=== PATIENT | male | born 1970 | race Caucasian/White ===

== ENCOUNTER 2022-05-30 04:24 | Inpatient (IN) | payer MEDICAID, SELFPAY ==
[2022-05-30] VITALS (7 sets, daily range): BP systolic 106–163; BP diastolic 71–102; PULSE 56–82; RESP 16–18; TEMP 36.5–37.6; O2SAT 94–98; BMI 28.8; BMI 27.9
--- NOTE | 2022-05-30 04:40 | EDS_ITS ---
HPI HPI - Psych History of Present Illness Chief Complaint: Mental Health Informant: patient and police/second hand paper machine Narrative Narrative: Patient lives in a detention, and left/eloped a couple days ago and it was actually reported missing. States [place] the [place] for the [place] 2 nights and no longer wants to be homeless. He states he has been drinking a little alcohol recently but not much and no other substances. He called police from a gas station tonight saying that he needed help with his mental health and needed brought to the hospital. He has been hearing voices that have been telling him to punch, slap, and scratch himself in the head/face. He is off his medications, and states he cannot think clearly right now. He is having some occasional suicidal thoughts but he denies suicidal ideation, he wants help which is why he called the police. Police escorted him here, saying that he was cooperative for them. Patient denies any recent illness or injury. [facility] Medical History (Updated 05/30/22 @ 07:[address] Terry Cornelius MD) Depression Diabetes mellitus HTN (hypertension) PTSD (post-traumatic stress disorder) Home Medications NK 05/30/22 [History Last Taken Unknown] Allergy/AdvReac Type Severity Reaction Status Date / Time No Known Allergies Allergy Verified 05/30/22 04:34 Social History Smoking Status: Never smoker ROS ROS ED Constitutional Constitutional ED: Denies chills or fever(s) Eyes Eyes: Denies change in vision or diplopia ENT ENT ED: Denies rhinorrhea or sore throat Cardiovascular Cardiovascular: Denies chest pain or palpitations Respiratory/Chest Respiratory/Chest: Denies cough or dyspnea Gastrointestinal Gastrointestinal: Denies abdominal pain, diarrhea, nausea or vomiting Genitourinary Genitourinary ED: Denies dysuria or hematuria Musculoskeletal Musculoskeletal: Denies back pain or neck pain Integumentary Denies abscess or rash Neurologic Neurologic: Denies headache(s), paresthesias or weakness Psychiatric Psychiatric: Reports auditory hallucinations, depression and suicidal thoughts; Denies homicidal ideation EXAM Physical Exam Const Vital Signs: 05/30/22 04:25 05/30/22 04:34 05/30/22 06:00 Temperature 97.7 F L Temperature Source Oral Pulse Rate 79 82 Respiratory Rate 16 16 Blood Pressure 163/102 H 153/99 H 147/95 H Blood Pressure Mean 122 117 112 Pulse Ox 94 95 Oxygen Delivery Method Room Air Room Air Positive well nourished, well developed and unkempt General Appearance ED: unkempt, well developed and NAD HEENT Reports moist mucous membranes normocephalic and atraumatic Eyes PERRL and EOMs intact bilaterally General Eye ED: Negative for scleral icterus Neck no lymphadenopathy and supple Resp normal respiratory effort and clear to auscultation bilaterally Cardio no murmurs Rate: regular rate; Negative for tachycardic Rhythm: regular rhythm GI non-tender and non-distended Auscultation: normoactive bowel sounds Palpation: soft Back/Spine no CVA tenderness and normal ROM Extremity normal to inspection General Extremety ED: Negative for edema General Extremity: Negative for edema Neuro CN's II-XII intact bilaterally, no sensory deficits noted and gait normal Neuro Narrative: Somewhat disoriented at times; difficult to tell because patient does not answer some questions and just says he is having trouble thinking clearly right now. Sensorium / Orientation: alert, oriented to person and oriented to place Motor Exam: strength 5/5 throughout Psych mental status grossly normal, cooperative, speech normal, activity/motor behavior normal, denies homicidal ideation and denies suicidal ideation Appearance: unkempt Mood & Affect: depressed Thought Content: suicidality Skin Lesions: no lesions Rashes: no rashes MDM MDM MDM Narrative Medical decision making narrative: Other than a history of depression and PTSD, his diagnoses are unknown and his medications are unknown. Labs show hyperglycemia at 328, I questioned him about the possibility of diabetes and he states yes he has a history of it but states that he was taken off of all medications at home and was given insulin whenever he was admitted to psychiatric hospitals in the past. His bilirubin is elevated at 3.2, I do not have old records on this. His other liver enzymes are just slightly elevated. He states he has been drinking recently, but does not have cirrhosis history that he knows of. He does not appear jaundiced clinically. His abdomen is very benign so this is unlikely to be anything acute and can be worked up further as an outpatient. He was given insulin to get his blood sugar down, his anion gap is within normal limits, his alcohol level is a little elevated at 118, and he has THC in his urine, no other drugs. I added an ammonia level, it actually is quite elevated suggesting he has acute hepatic encephalopathy given his disorientation. I discussed with hospitalist, we will admit him and I will go ahead and order an ultrasound to start the work-up process. Lab Data Attestation: I reviewed the patient's lab results. Labs: Laboratory Results - last 24 hr 05/30/22 05/30/22 05/30/22 05:00 05:00 05:00 WBC 3.7 L RBC 3.96 L Hgb 13.0 Hct 37.8 L MCV 95.5 H MCH 32.8 H MCHC 34.4 RDW Std Deviation 50.1 H RDW Coeff of Harrison 14.2 Plt Count 66 L MPV 11.8 Immature Gran % (Auto) 0.300 Neut % (Auto) 58.6 Lymph % (Auto) 23.8 Lipscomb % (Auto) 13.5 H Eos % (Auto) 3.5 Baso % (Auto) 0.3 Absolute Neuts (auto) 2.2 Absolute Lymphs (auto) 0.88 Nucleated RBC % 0 Differential Comment SCANNED Platelet Estimate MOD DEC PT INR Sodium 136 Potassium 3.9 Chloride 103 Carbon Dioxide 27.0 Anion Gap 6 BUN 4 L Creatinine 0.65 L Estim Creat Clear Calc 112.58 Est GFR (MDRD) Af Amer 167 Est GFR (MDRD) Non-Af 138 BUN/Creatinine Ratio 6.2 L Glucose 328 H Calcium 8.1 L Total Bilirubin 3.20 H AST 128 H ALT 91 H Alkaline Phosphatase 144 H Ammonia Total Protein 7.0 Albumin 2.6 L Globulin 4.4 H Albumin/Globulin Ratio 0.6 L Urine Opiates Screen Urine Methadone Screen Ur Barbiturates Screen Ur Phencyclidine Scrn Ur Amphetamines Screen MDMA (Ecstasy) Screen U Benzodiazepines Scrn Urine Cocaine Screen U Cannabinoids Screen Ur Drug Screen Comment Ethyl Alcohol 118.0 05/30/22 05/30/22 05/30/22 05:00 06:00 06:00 WBC RBC Hgb Hct MCV MCH MCHC RDW Std Deviation RDW Coeff of Harrison Plt Count MPV Immature Gran % (Auto) Neut % (Auto) Lymph % (Auto) Lipscomb % (Auto) Eos % (Auto) Baso % (Auto) Absolute Neuts (auto) Absolute Lymphs (auto) Nucleated RBC % Differential Comment Platelet Estimate PT 16.0 H INR 1.3 Sodium Potassium Chloride Carbon Dioxide Anion Gap BUN Creatinine Estim Creat Clear Calc Est GFR (MDRD) Af Amer Est GFR (MDRD) Non-Af BUN/Creatinine Ratio Glucose Calcium Total Bilirubin AST ALT Alkaline Phosphatase Ammonia 136.0 H Total Protein Albumin Globulin Albumin/Globulin Ratio Urine Opiates Screen NEGATIVE Urine Methadone Screen NEGATIVE Ur Barbiturates Screen NEGATIVE Ur Phencyclidine Scrn NEGATIVE Ur Amphetamines Screen NEGATIVE MDMA (Ecstasy) Screen NEGATIVE U Benzodiazepines Scrn NEGATIVE Urine Cocaine Screen NEGATIVE U Cannabinoids Screen POSITIVE H Ur Drug Screen Comment Ethyl Alcohol Discharge Plan Dx/Rx/DC Orders Clinical Impression: Acute hepatic encephalopathy, Auditory hallucinations, Hyperglycemia due to diabetes mellitus Disposition Disposition: Acute Care Hospital [facility]
--- NOTE | 2022-05-30 05:02 | ED.RN ---
Per Dr Cornelius patient is low suicide risk and does not need a sitter
[2022-05-30 05:17] LABS: Absolute Lymphocyte Count 0.88 X10^3/uL (0.83-4.51); Absolute Neutrophil Count 2.2 X10^3/uL (2.0-7.7); Basophil# 0.01 X10^3/uL; Basophil% 0.3 % (0-1); Eosinophil# 0.13 X10^3/uL; Eosinophils% 3.5 % (0-5); Hematocrit 37.8 % (40-54); Lymphocyte # 0.88 X10^3/ul (0.83-4.51); Lymphocyte % 23.8 % (19-41); Mean Corp Hgb Conc 34.4 g/dL (32-36); Mean Corpuscular Hgb 32.8 pg (27.0-32.0); Mean Corpuscular Volume 95.5 fL (80-94); Mean Platelet Vol. 11.8 fl (6.2-12.0); Monocyte% 13.5 % (0-10); NRBC Flagged by Analyzer 0 % (0-5); Neutrophil # 2.17 X10^3/uL (2.7-7.7); Neutrophil % 58.6 % (47-70); POSITIVE COUNT YES; Platelet Count 66 K/mm3 (150-450); RBC Distribution Width CV 14.2 % (11.6-14.6); RBC Distribution Width SD 50.1 fl (35.1-43.9); Red Blood Count 3.96 M/mm3 (4.6-6.2); White Blood Count 3.7 K/mm3 (4.4-11.0)
[2022-05-30 05:27] LABS: Differential Indicated SCAN CRITERIA MET
[2022-05-30 05:29] LABS: Amphetamine Urine VISTA NEGATIVE (<1000 ng/mL); Barbiturate Urine VISTA NEGATIVE (< 200 ng/mL); Benzodiazepine Urine VISTA NEGATIVE (< 200 ng/mL); Cocaine Urine VISTA NEGATIVE (< 300 ng/mL); Ecstacy Urine VISTA NEGATIVE (< 500 ng/mL); Methadone Urine VISTA NEGATIVE (< 300 ng/mL); PCP Urine VISTA NEGATIVE (< 25 ng/mL); THC Urine VISTA POSITIVE (< 50 ng/mL); Vista UDS pH Range 7
[2022-05-30 05:35] LABS: ALB/GLOB Ratio 0.6 RATIO (0.9-2.4); AST(SGOT) 128 U/L (15-37); Alanine Aminotransfer ALT/SGPT 91 U/L (16-61); Albumin, Serum 2.6 g/dL (3.2-5.0); Alkaline Phosphatase 144 U/L (45-117); Anion Gap 6 (5-15); BUN 4 mg/dL (7-18); BUN/Creat Ratio 6.2 RATIO (10-20); Calcium,Total 8.1 mg/dL (8.5-10.1); Chloride 103 mmol/L (98-107); Creatinine, Serum 0.65 mg/dL (0.70-1.30); EST Glomerular Filtration Rate 138 mL/min (>60); Est Glom Filt Rate - Afr Amer 167 mL/min (>60); Estimated Creatinine Clearance 112.58 ml/min; Globulin 4.4 g/dL (2.2-4.2); Glucose 328 mg/dL (74-106); Potassium 3.9 mmol/L (3.5-5.1); Sodium Level 136 mmol/L (136-145)
[2022-05-30 05:56] LABS: Differential Comment SCANNED; Platelet Estimate MOD DEC (ADEQ)
[2022-05-30] MEDS: Insulin Lispro 100 UNIT/ML INSULN.PEN 12 UNIT SC (05:57)
[2022-05-30 06:21] LABS: International Normalized Ratio 1.3
--- NOTE | 2022-05-30 07:18 | NURSING ---
HOSPITALIST FOR DR MENCHACA
--- NOTE | 2022-05-30 07:21 | US_ITS ---
STUDY: ABDOMINAL ULTRASOUND - RIGHT UPPER QUADRANT REASON FOR VISIT: Male, 51 years old elevated liver enzymes, hepatic encephalopathy TECHNIQUE: Ultrasound evaluation of the right upper quadrant was performed with real-time and static butler-scale imaging. TECHNICAL QUALITY: Adequate. COMPARISON: None. FINDINGS: Liver: The liver measures 12.7 cm. There is a heterogeneous echogenicity of the liver. The bile ducts are within normal limits. There is hepatic color flow. The direction of portal flow is hepatopetal. There is no demonstrated mass lesion. Gallbladder: Normal distended gallbladder. The gallbladder wall measures 3 mm. There is a negative sonographic Henderson''s sign. There is pericholecystic fluid. There are no gallstones. Common Bile Duct (C.B.D.): The common bile duct measures 4 mm. Pancreas: Normal size of the head, body and tail of the pancreas. There is normal echogenicity of the pancreas. There is no demonstrated pancreatic mass or cyst. Right Kidney: Normal size of the right kidney. The right kidney measures 12.1 cm. Normal renal cortex. The right cortex measures 1.4 cm. There is no demonstrated renal mass or cyst. There is no right hydronephrosis. US/Liver IMPRESSION: 1. Heterogeneous hepatic echotexture which may be related to cirrhosis or hepatitis. No hepatic mass. 2. Gallbladder wall thickening and small amount of pericholecystic fluid which may be related to ascites or cholecystitis. Clinical correlation and CT may be useful. Electronically Signed: Moi Salguero MD at 16:04 EDT ,
--- NOTE | 2022-05-30 07:26 | HP.PCM.HOS_ITS ---
HPI - General General Date of Admission: 05/30/22 Date of Service: 05/30/22 Chief Complaint: Confusion, suicidal ideation HPI Narrative JOSE TALLEY, is a 51 M who presents with the above. Patient has history of schizoaffective disorder, chronic alcohol use, substance abuse who comes in with confusion. Patient lives in a retirement and reportedly had eloped about a week from the retirement. He has been living out in the park. Patient stated that he has been feeling very depressed and had wanted to kill himself several times. He however did not have a rope to do it. He called the police from a gas station saying he needed help with his mental health and needed to be brought to the hospital. 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 He still feels low, and he has a plan to either jump in front of a semitruck or hang himself. He last had these depressive thoughts this morning. Patient also stated that he has DM but not on medication. Vitals in the ED showed temperature 97.7F, blood pressure 163/102, heart rate 79, respiratory rate 16, oxygen sat is 94% on room air. His RBC count was 3.7, Hb 13.2, platelet count 66. INR is 1.3. Sodium 136, potassium 3.9, chloride 103, bicarbonate 27, BUN 4, creatinine 0.65, glucose was 328, HbA1c 7.8, calcium 8.1, total bilirubin 0.2, WBCs 1.52, AST 128, ALT 91, ALP 144, ammonia 136.0, albumin 2.6. UA is positive for cannabinoids. Hepatitis profile is pending. [facility] Medical History Bipolar disorder Depression Diabetes mellitus HTN (hypertension) PTSD (post-traumatic stress disorder) Schizophrenia Home Medications NK 05/30/22 [History Last Taken Unknown] Allergy/AdvReac Type Severity Reaction Status Date / Time No Known Allergies Allergy Verified 05/30/22 04:34 Family History (Updated 05/30/22 @ 12:[address] Cinthia Shelby MD) Father Heart disease Mother No problems noted. Surgical History (Updated 05/30/22 @ 12:[address] Cinthia Shelby MD) History of tonsillectomy Social History Smoking Status: Never smoker ROS ROS Narrative Constitutional: Denies: Anorexia, Chills, Fever, Night Sweats, Weight Change Eyes: Denies: Blurred vision, Cataracts, Conjunctivae Inflammation, Pain, Redness, Vision Change HEENT: Denies: Difficulty Hearing, Difficulty Swallowing, Head Aches, Hearing Changes, Sinus Congestion, Sinus Drainage Cardiovascular: Denies: Chest Pain, Orthopnea, Palpitations Respiratory: Denies: Cough, Shortness of breath at rest, Sputum production Gastrointestinal: Denies: Abdominal Pain, Nausea, Vomiting Genitourinary: Denies: Dysuria Musculoskeletal: Denies: Joint Pain, Joint stiffness, Joint swelling, Joint Tenderness Skin: Denies: Rash, Wounds Neurological: Denies: Numbness, Tingling, Focal weakness Vital Signs Vital Signs Vital Signs: 05/30/22 04:25 05/30/22 04:34 05/30/22 06:00 Temperature 97.7 F L Temperature Source Oral Pulse Rate 79 82 Respiratory Rate 16 16 Blood Pressure 163/102 H 153/99 H 147/95 H Blood Pressure Mean 122 117 112 Pulse Ox 94 95 Oxygen Delivery Method Room Air Room Air Weight Weight: 76.2 kg Body Mass Index (BMI) 28.8 Physical Exam Narrative Physical exam: General: Alert, Oriented x3, Cooperative, No apparent distress HEENT: Atraumatic Oral: Moist Mucosa Neck: Supple Lungs: Clear to auscultation Cardiovascular: HS I+II, regular, no murmurs Abdomen: Bowel Sounds Present, Soft, Non Tender Extremities: No edema Skin: No rashes, No breakdown Neurological: Grossly intact Psych/Mental Status: Appropriate Results Lab / Micro Data Result Diagrams: 05/30/22 05:00 05/30/22 05:00 Labs: Laboratory Results - last 24 hr 05/30/22 05:00: WBC 3.7 L, RBC 3.96 L, Hgb 13.0, Hct 37.8 L, MCV 95.5 H, MCH 32.8 H, MCHC 34.4, RDW Std Deviation 50.1 H, RDW Coeff of Harrison 14.2, Plt Count 66 L, MPV 11.8, Immature Gran % (Auto) 0.300, Neut % (Auto) 58.6, Lymph % (Auto) 23.8, Dane % (Auto) 13.5 H, Eos % (Auto) 3.5, Baso % (Auto) 0.3, Absolute Neuts (auto) 2.2, Absolute Lymphs (auto) 0.88, Nucleated RBC % 0, Differential Comment SCANNED, Platelet Estimate MOD 05/30/22 05:00: Sodium 136, Potassium 3.9, Chloride 103, Carbon Dioxide 27.0, Anion Gap 6, BUN 4 L, Creatinine 0.65 L, Estim Creat Clear Calc 112.58, Est GFR (MDRD) Af Amer 167, Est GFR (MDRD) Non-Af 138, BUN/Creatinine Ratio 6.2 L, Glucose 328 H, Calcium 8.1 L, Total Bilirubin 3.20 H, AST 128 H, ALT 91 H, Alkaline Phosphatase 144 H, Total Protein 7.0, Albumin 2.6 L, Globulin 4.4 H, Albumin/Globulin Ratio 0.6 L 05/30/22 05:00: Ethyl Alcohol 118.0 05/30/22 05:00: Urine Opiates Screen NEGATIVE, Urine Methadone Screen NEGATIVE, Ur Barbiturates Screen NEGATIVE, Ur Phencyclidine Scrn NEGATIVE, Ur Amphetamines Screen NEGATIVE, MDMA (Ecstasy) Screen NEGATIVE, U Benzodiazepines Scrn NEGATIVE, Urine Cocaine Screen NEGATIVE, U Cannabinoids Screen POSITIVE H, Ur Drug Screen Comment 05/30/22 06:00: Ammonia 136.0 H 05/30/22 06:00: PT 16.0 H, INR 1.3 Micro: Microbiology 05/30/22 05:10 Nasal Secretion SARS-CoV-2 Antigen (Rapid) - Final Assessment & Plan Assessment/Plan (1) Acute hepatic encephalopathy: PLAN: Plan 1. Acute hepatic encephalopathy, likely secondary to alcoholic liver cirrhosis Patient with history of alcohol abuse. Ammonia level is 136 LFTs elevated, work-up including liver ultrasound, hepatitis profile, Tylenol levels, salicylate levels Continue on lactulose, follow-up on rest of work-up 2. Suicidal ideation/intent, history of schizoaffective disorder We will continue to monitor 3. Type 2 DM, HbA1c 7.8, will control for now on insulin sliding scale 4. Chronic alcohol abuse, will monitor for withdrawal 5. Thrombocytopenia likely related to liver cirrhosis, platelet count 66, will monitor 6. DVT PPx-low risk, early ambulation recommended Charges/Coding Visit Charges Inpatient E&M: 82450 Init Hosp L3
--- NOTE | 2022-05-30 07:28 | NURSING ---
MED SURG [facility]UAMA HEPATIC ENCEPHALOPATHY
[2022-05-30] MEDS: 0.9% Normal Saline 1,000 ML 100 ML IV ×2 (08:47→20:02)
[2022-05-30 08:51] LABS: Bilirubin, Direct 1.52 mg/dL (0.00-0.30)
--- NOTE | 2022-05-30 09:02 | ED.RN ---
THIS RN WAS GIVEN LEGAL GUARDIAN AND SCREEN TENDER HELPER INFO FROM JAYLYN AT [facility]. THIS RN SPOKE WITH LEGAL GUARDIAN RICKI VILLAREAL AT [phone] WHO VERBALIZED UNDERSTANDING OF PATIENTS ADMISSION, GIVING CONSENT. HE ALSO STATED THAT HE WAS ON VACATION IN THE [facility], HE IS AVAILABLE BUT CELL PRODUCTION SPECIALIST IS LIMITED. THIS RN THEN CALLED HIS SCREEN TENDER HELPER MARINO AT [phone] GAVE HER AN UPDATE ON PATIENT AND HIS CONDITION/ ADMISSION. I THEN SPOKE WITH ELIZABETH BARGER ON MS. I GAVE HER INFORMATION REGARDING RAMIRO AND MARINO FOR FURTHER FOLLOWUP.
[2022-05-30] MEDS: Lactulose 20 GM/30 ML UDC PO ×2 (09:15→21:59)
--- NOTE | 2022-05-30 09:15 | CASEMGMT ---
Social Work SW spoke with ED RN and received information on pt's Legal Guardian and Candy Counter Clerk. Demographic sheet updated. SW did call Candy Counter Clerk and leave message. CHELY is Isabel Banerjee from [facility]. Per physician, pt will need to be seen by crisis for psychiatric placement but pt is not medically cleared at this time. DEISI Acosta
[2022-05-30 09:16] LABS: Acetaminophen (Tylenol) Level < 2.0 ug/mL (10.0-30.0)
--- NOTE | 2022-05-30 09:34 | NURSING ---
pt stated he had thoughts of hurting self until he came to hospital. pt stated he always has a plan to kill self. notified dr jean and professor of social work.
[2022-05-30 12:42] LABS: Hemoglobin A1c 7.8 % (3.8-5.6)
--- NOTE | 2022-05-30 14:44 | NURSING ---
pt to u/s with sitter
[2022-05-30] MEDS: Insulin Lispro 100 UNIT/ML INSULN.PEN SC ×2 (15:54→22:00)
[2022-05-30 16:25] LABS: Bedside Glucose 171 mg/dL (74-106)
[2022-05-30 22:31] LABS: Bedside Glucose 215 mg/dL (74-106)
[2022-05-31 01:55] VITALS: BP 123/76; PULSE 54; RESP 18; TEMP 36.7; O2SAT 94
[2022-05-31 05:30] LABS: Absolute Lymphocyte Count 0.92 X10^3/uL (0.83-4.51); Absolute Neutrophil Count 1.8 X10^3/uL (2.0-7.7); Eosinophil# 0.15 X10^3/uL; Eosinophils% 4.7 % (0-5); Hematocrit 35.9 % (40-54); Hemoglobin 12.3 g/dL (13.0-16.5); Lymphocyte # 0.92 X10^3/ul (0.83-4.51); Lymphocyte % 28.8 % (19-41); Mean Corp Hgb Conc 34.3 g/dL (32-36); Mean Corpuscular Hgb 32.5 pg (27.0-32.0); Mean Platelet Vol. 11.8 fl (6.2-12.0); Monocyte# 0.36 X10^3/uL; Monocyte% 11.3 % (0-10); NRBC Flagged by Analyzer 0 % (0-5); Neutrophil # 1.76 X10^3/uL (2.7-7.7); Neutrophil % 54.9 % (47-70); POSITIVE COUNT YES; Platelet Count 52 K/mm3 (150-450); RBC Distribution Width SD 48.9 fl (35.1-43.9); Red Blood Count 3.78 M/mm3 (4.6-6.2); White Blood Count 3.2 K/mm3 (4.4-11.0)
[2022-05-31] MEDS: 0.9% Normal Saline 1,000 ML 100 ML IV (05:38)
[2022-05-31 06:00] LABS: ALB/GLOB Ratio 0.6 RATIO (0.9-2.4); AST(SGOT) 102 U/L (15-37); Alanine Aminotransfer ALT/SGPT 78 U/L (16-61); Albumin, Serum 2.2 g/dL (3.2-5.0); Alkaline Phosphatase 139 U/L (45-117); Anion Gap 4 (5-15); BUN 5 mg/dL (7-18); Calcium,Total 7.9 mg/dL (8.5-10.1); Chloride 108 mmol/L (98-107); Cholesterol 84 mg/dL (200); Creatinine, Serum 0.56 mg/dL (0.70-1.30); EST Glomerular Filtration Rate 164 mL/min (>60); Est Glom Filt Rate - Afr Amer 199 mL/min (>60); Estimated Creatinine Clearance 130.67 ml/min; Globulin 3.9 g/dL (2.2-4.2); Glucose 193 mg/dL (74-106); High Density Lipoprotein 38 mg/dL; Magnesium 1.5 mg/dL (1.6-2.6); Potassium 3.5 mmol/L (3.5-5.1); Protein, Total 6.1 g/dL (6.4-8.2); Sodium Level 138 mmol/L (136-145); Triglycerides 91 mg/dL; Very Low Density Lipoprotein 18 mg/dL (5-40)
[2022-05-31] MEDS: Insulin Lispro 100 UNIT/ML INSULN.PEN SC ×4 (06:42→21:42)
[2022-05-31 07:05] LABS: Bedside Glucose 239 mg/dL (74-106)
[2022-05-31 07:57] VITALS: BP 124/84; PULSE 62; RESP 16; TEMP 37.1; O2SAT 97
[2022-05-31] MEDS: Lactulose 20 GM/30 ML UDC PO ×2 (09:07→21:41)
--- NOTE | 2022-05-31 09:54 | PN.HOSP_ITS ---
Subjective Subjective Follow-up on acute hepatic encephalopathy/acute psychiatric crisis: Patient was seen and examined. He feels improved, he is moving his bowels. He admits to still hearing voices. He stated that this morning he felt strongly that he should kill himself. He does not have a clear plan yet. He has been hearing voices and has been hearing from God. Objective Data Objective Data Vital Signs: Vital Signs Temp Pulse Resp BP Pulse Ox O2 Del Method 98.7 F 62 16 124/84 H 97 Room Air 05/31/22 07:57 05/31/22 07:57 05/31/22 07:57 05/31/22 07:57 05/31/22 07:57 05/31/22 07:57 Oxygen Delivery Method Room Air Weight: 74.134 kg Body Mass Index (BMI) 27.9 Intake & Output: Intake and Output for Last 24 Hours 05/29/22 05/30/22 05/31/22 23:59 23:59 23:59 Intake Total 1525 / 2325 2360 / 2360 Balance 1525 / 2325 2360 / 2360 Lab / Micro Data Result Diagrams: 05/31/22 05:20 05/31/22 05:20 Labs: Laboratory Results - last 24 hr 05/30/22 05:00: Hemoglobin A1c 7.8 H 05/30/22 15:53: POC Glucose 171 H 05/30/22 21:57: POC Glucose 215 H 05/31/22 05:20: WBC 3.2 L, RBC 3.78 L, Hgb 12.3 L, Hct 35.9 L, MCV 95.0 H, MCH 32.5 H, MCHC 34.3, RDW Std Deviation 48.9 H, RDW Coeff of Harrison 14.0, Plt Count 52 L, MPV 11.8, Immature Gran % (Auto) 0.300, Neut % (Auto) 54.9, Lymph % (Auto) 28.8, [place] % (Auto) 11.3 H, Eos % (Auto) 4.7, Baso % (Auto) 0.0, Absolute Neuts (auto) 1.8 L, Absolute Lymphs (auto) 0.92, Nucleated RBC % 0 05/31/22 05:20: Sodium 138, Potassium 3.5, Chloride 108 H, Carbon Dioxide 26.0, Anion Gap 4 L, BUN 5 L, Creatinine 0.56 L, Estim Creat Clear Calc 130.67, Est GFR (MDRD) Af Amer 199, Est GFR (MDRD) Non-Af 164, BUN/Creatinine Ratio 9.0 L, Glucose 193 H, Calcium 7.9 L, Magnesium 1.5 L, Total Bilirubin 3.10 H, AST 102 H , ALT 78 H, Alkaline Phosphatase 139 H, Total Protein 6.1 L, Albumin 2.2 L, Globulin 3.9, Albumin/Globulin Ratio 0.6 L, Triglycerides 91, Cholesterol 84, LDL Cholesterol 28, VLDL Cholesterol 18, HDL Cholesterol 38 L 05/31/22 05:20: Ammonia 82.0 H 05/31/22 06:40: POC Glucose 239 H Micro: Microbiology 05/30/22 05:10 Nasal Secretion SARS-CoV-2 Antigen (Rapid) - Final Radiography Diagnostic Testing: Radiology Impression Liver Ultrasound 05/30/22 07:21 IMPRESSION: 1. Heterogeneous hepatic echotexture which may be related to cirrhosis or hepatitis. No hepatic mass. 2. Gallbladder wall thickening and small amount of pericholecystic fluid which may be related to ascites or cholecystitis. Clinical correlation and CT may be useful. Electronically Signed: Moi Salguero MD at 16:04 EDT , Physical Exam Narrative Physical exam: General: Alert, Oriented x3, Cooperative, No apparent distress HEENT: Atraumatic Oral: Moist Mucosa Neck: Supple Lungs: Clear to auscultation Cardiovascular: HS I+II, regular, no murmurs Abdomen: Bowel Sounds Present, Soft, Non Tender Extremities: No edema Skin: No rashes, No breakdown Neurological: Grossly intact Psych/Mental Status: Appropriate Assessment & Plan Assessment/Plan (1) Acute hepatic encephalopathy: PLAN: Plan 1. Acute hepatic encephalopathy, likely secondary to alcoholic liver cirrhosis/alcoholic hepatitis Patient with history of alcohol abuse. Ammonia level is 82 from 136 LFTs are slightly improved. Lipid profile is unremarkable, acetaminophen level less than 2, hepatitis profile pending GI consulted - will start on prednisone 20mg daily, nadolol 10mg BID, famotidine, Continue on lactulose Repeat blood work in am 2. Hypomagnesmia, Mg 1.5, replaced, recheck in am 3. Suicidal ideation/intent, history of schizoaffective disorder Will start on Seroquel EKG in am 4. Type 2 DM, HbA1c 7.8, will patient to be put on prednisone for alcoholic hepatitis Continue on insulin sliding scale 5. Chronic alcohol abuse, will monitor for withdrawal 6. Thrombocytopenia likely related to liver cirrhosis, platelet count 52, will monitor 7. DVT PPx-low risk, early ambulation recommended Charges/Coding Visit Charges Inpatient E&M: 11957 Subs Hosp L2
[2022-05-31 11:35] LABS: Bedside Glucose 344 mg/dL (74-106)
[2022-05-31 11:42] VITALS: BP 134/81; PULSE 64; RESP 16; TEMP 37.4; O2SAT 97
[2022-05-31] MEDS: QUEtiapine 25 MG Tablet PO ×2 (13:28→21:43)
[2022-05-31] MEDS: Magnesium Sulfate 4gm/100mL 4 GM/100 ML IV.SOLN. IV (13:57)
[2022-05-31] MEDS: Nadolol 20 MG Tablet 10 MG PO ×2 (13:58→21:42)
[2022-05-31 14:46] VITALS: BP 116/67; PULSE 75; RESP 16; TEMP 37.1; O2SAT 96
[2022-05-31 16:35] LABS: Bedside Glucose 254 mg/dL (74-106)
--- NOTE | 2022-05-31 17:45 | PCM.CONS.GEN ---
Assessment & Plan Assessment/Plan (1) Acute hepatic encephalopathy: PLAN: His ammonia level is improving with lactulose therapy. I will continue that at current dosing. (2) Cirrhosis: PLAN: Cirrhosis is likely secondary to alcohol as his white blood cell count is likely decreased secondary to bone marrow toxicity from alcohol. So far he is decompensated cirrhosis with an acute encephalopathy, chronic thrombocytopenia and what appears to be labs consistent with alcoholic hepatitis. I would recommend nadolol 10 mg p.o. twice daily for portal hypertension. He will need an upper endoscopy due to rule out esophageal gastric and duodenal varices. Recommend strict glucose control. No signs of ascites on exam. He will also need alpha-fetoprotein tumor marker for hepatocellular carcinoma. Also due to his psychiatric illness he should have a copper level, ceruloplasmin, ferritin and haptoglobin drawn to look for other signs of chronic liver disease not just from alcohol such as Jose's disease. If his serum copper is elevated we will need to draw a urine copper and if that is elevated we will need to get a liver biopsy. Also we will send blood work for primary bili cirrhosis and autoimmune hepatitis. (3) Alcoholic hepatitis: PLAN: His Madrey score is 40. I requested that the patient be put on 20 mg of prednisone. If his score improves in the next 3 days then a Anna Marie score can be drawn to see if he only needs the steroids for a week. He has not shown any signs of further decompensated liver disease. We will need to check his INR. HPI Consult Data Date of Consult: 05/31/22 HPI Narrative Reason for Consultation: cirrhosis HPI Narrative: JOSE TALLEY, is a 51 M who presented to the ED with auto mental status. He has a past medical history of chronic alcohol abuse, alcoholic hepatitis, alcoholic pancreatitis, schizoaffective disorder with suicidal ideations. He presented to the hospital on 05/30/2022 with the chief complaint of confusion and hearing voices. His biochemical analysis showed that he was afebrile and satting 94% on room air. His blood pressure was mildly elevated. His biochemical analysis showed that he was hypercarbic, encephalopathic with a ammonia level of 136, hyperglycemic with a glucose of 326. Also was noted was a transaminitis and leukopenia. I was asked to see the patient for management and complications due to cirrhosis. [facility] Medical History (Updated 05/31/22 @ 17:[address] Bee Friend, DO) Bipolar disorder Depression Diabetes mellitus HTN (hypertension) PTSD (post-traumatic stress disorder) Schizophrenia Home Medications NK 05/30/22 [History Last Taken Unknown] Allergy/AdvReac Type Severity Reaction Status Date / Time No Known Allergies Allergy Verified 05/30/22 04:34 Family History (Updated 05/30/22 @ 12:[address] Cinthia Shelby MD) Father Heart disease Mother No problems noted. Surgical History (Updated 05/30/22 @ 12:[address] Cinthia Shelby MD) History of tonsillectomy Social History Smoking Status: Never smoker ROS ROS Narrative Constitutional: Denies: Anorexia, Chills, Fever, Night Sweats, Weight Change Eyes: Denies: Blurred vision, Cataracts, Conjunctivae Inflammation, Pain, Redness, Vision Change HEENT: Denies: Difficulty Hearing, Difficulty Swallowing, Head Aches, Hearing Changes, Sinus Congestion, Sinus Drainage Cardiovascular: Denies: Chest Pain, Orthopnea, Palpitations Respiratory: Denies: Cough, Shortness of breath at rest, Sputum production Gastrointestinal: Denies: Abdominal Pain, Nausea, Vomiting Genitourinary: Denies: Dysuria Musculoskeletal: Denies: Joint Pain, Joint stiffness, Joint swelling, Joint Tenderness Skin: Denies: Rash, Wounds Neurological: Denies: Numbness, Tingling, Focal weakness Physical Exam Narrative Physical exam: General: Alert, Oriented x3, Cooperative, No apparent distress HEENT: Atraumatic Oral: Moist Mucosa Neck: Supple Lungs: Clear to auscultation Cardiovascular: HS I+II, regular, no murmurs Abdomen: Bowel Sounds Present, Soft, Non Tender Extremities: No edema Skin: No rashes, No breakdown Neurological: Grossly intact Psych/Mental Status: Appropriate Lab / Micro Data Result Diagrams: 05/31/22 05:20 05/31/22 05:20 Labs: Laboratory Results - last 24 hr 05/30/22 21:57: POC Glucose 215 H 05/31/22 05:20: WBC 3.2 L, RBC 3.78 L, Hgb 12.3 L, Hct 35.9 L, MCV 95.0 H, MCH 32.5 H, MCHC 34.3, RDW Std Deviation 48.9 H, RDW Coeff of Harrison 14.0, Plt Count 52 L, MPV 11.8, Immature Gran % (Auto) 0.300, Neut % (Auto) 54.9, Lymph % (Auto) 28.8, [place] % (Auto) 11.3 H, Eos % (Auto) 4.7, Baso % (Auto) 0.0, Absolute Neuts (auto) 1.8 L, Absolute Lymphs (auto) 0.92, Nucleated RBC % 0 05/31/22 05:20: Sodium 138, Potassium 3.5, Chloride 108 H, Carbon Dioxide 26.0, Anion Gap 4 L, BUN 5 L, Creatinine 0.56 L, Estim Creat Clear Calc 130.67, Est GFR (MDRD) Af Amer 199, Est GFR (MDRD) Non-Af 164, BUN/Creatinine Ratio 9.0 L, Glucose 193 H, Calcium 7.9 L, Magnesium 1.5 L, Total Bilirubin 3.10 H, AST 102 H, ALT 78 H, Alkaline Phosphatase 139 H, Total Protein 6.1 L, Albumin 2.2 L, Globulin 3.9, Albumin/Globulin Ratio 0.6 L, Triglycerides 91, Cholesterol 84, LDL Cholesterol 28, VLDL Cholesterol 18, HDL Cholesterol 38 L 05/31/22 05:20: Ammonia 82.0 H 05/31/22 06:40: POC Glucose 239 H 05/31/22 11:11: POC Glucose 344 H 05/31/22 16:12: POC Glucose 254 H Charges/Coding Visit Charges Inpatient E&M: 83758 Init Hosp L3
[2022-05-31 18:28] LABS: Ferritin 446 ng/mL (26-388)
[2022-05-31 20:50] VITALS: BP 140/80; PULSE 67; RESP 18; TEMP 37; O2SAT 94
[2022-05-31] MEDS: Insulin Glargine-YFGN 100 UNIT/ML Pen 15 UNIT SC (21:43)
[2022-05-31 22:20] LABS: Bedside Glucose 223 mg/dL (74-106)
[2022-06-01 02:49] VITALS: BP 115/73; PULSE 60; RESP 18; TEMP 36.8; O2SAT 94
[2022-06-01 05:24] LABS: Absolute Lymphocyte Count 0.82 X10^3/uL (0.83-4.51); Absolute Neutrophil Count 1.6 X10^3/uL (2.0-7.7); Basophil# 0.02 X10^3/uL; Basophil% 0.7 % (0-1); Eosinophil# 0.14 X10^3/uL; Eosinophils% 4.7 % (0-5); Hematocrit 38.9 % (40-54); Hemoglobin 13.4 g/dL (13.0-16.5); Lymphocyte # 0.82 X10^3/ul (0.83-4.51); Lymphocyte % 27.5 % (19-41); Mean Corp Hgb Conc 34.4 g/dL (32-36); Mean Corpuscular Hgb 32.9 pg (27.0-32.0); Mean Corpuscular Volume 95.6 fL (80-94); Mean Platelet Vol. 11.2 fl (6.2-12.0); Monocyte# 0.41 X10^3/uL; Monocyte% 13.8 % (0-10); NRBC Flagged by Analyzer 0 % (0-5); Neutrophil # 1.58 X10^3/uL (2.7-7.7); POSITIVE COUNT YES; Platelet Count 56 K/mm3 (150-450); RBC Distribution Width CV 14.1 % (11.6-14.6); RBC Distribution Width SD 49.6 fl (35.1-43.9); Red Blood Count 4.07 M/mm3 (4.6-6.2)
[2022-06-01 05:50] LABS: ALB/GLOB Ratio 0.6 RATIO (0.9-2.4); AST(SGOT) 101 U/L (15-37); Alanine Aminotransfer ALT/SGPT 80 U/L (16-61); Albumin, Serum 2.4 g/dL (3.2-5.0); Alkaline Phosphatase 169 U/L (45-117); Anion Gap 5 (5-15); BUN 6 mg/dL (7-18); BUN/Creat Ratio 10.7 RATIO (10-20); Calcium,Total 7.9 mg/dL (8.5-10.1); Chloride 109 mmol/L (98-107); Creatinine, Serum 0.56 mg/dL (0.70-1.30); EST Glomerular Filtration Rate 163 mL/min (>60); Est Glom Filt Rate - Afr Amer 197 mL/min (>60); Estimated Creatinine Clearance 130.67 ml/min; Globulin 4.2 g/dL (2.2-4.2); Glucose 171 mg/dL (74-106); Magnesium 1.8 mg/dL (1.6-2.6); Potassium 3.6 mmol/L (3.5-5.1); Protein, Total 6.6 g/dL (6.4-8.2); Sodium Level 139 mmol/L (136-145)
[2022-06-01] MEDS: Insulin Lispro 100 UNIT/ML INSULN.PEN SC ×4 (07:04→22:30)
[2022-06-01 07:26] LABS: Bedside Glucose 217 mg/dL (74-106)
--- NOTE | 2022-06-01 08:09 | PN.HOSP_ITS ---
Subjective Subjective Follow-up on acute hepatic encephalopathy/acute psychiatric crisis: Patient was seen and examined.?He has not a had a bowel movement today. He admits to hearing voices worse today. Objective Data Objective Data Vital Signs: Vital Signs Temp Pulse Resp BP Pulse Ox O2 Del Method 98.3 F 60 18 115/73 94 Room Air 06/01/22 02:49 06/01/22 02:49 06/01/22 02:49 06/01/22 02:49 06/01/22 02:49 06/01/22 02:49 Oxygen Delivery Method Room Air Weight: 74.8 kg Body Mass Index (BMI) 27.9 Intake & Output: Intake and Output for Last 24 Hours 05/30/22 05/31/22 06/01/22 23:59 23:59 23:59 Intake Total 1525 / 2325 4345 / 5065 1020 / 1020 Balance 1525 / 2325 4345 / 5065 1020 / 1020 Lab / Micro Data Result Diagrams: 06/01/22 05:10 06/01/22 05:10 Labs: Laboratory Results - last 24 hr 05/31/22 05:20: Ferritin 446 H 05/31/22 05:20: Direct Antiglob Test NEG w/POLYSPECIFIC 05/31/22 11:11: POC Glucose 344 H 05/31/22 16:12: POC Glucose 254 H 05/31/22 21:40: POC Glucose 223 H 06/01/22 05:10: Ammonia 98.0 H 06/01/22 05:10: WBC 3.0 L, RBC 4.07 L, Hgb 13.4, Hct 38.9 L, MCV 95.6 H, MCH 32.9 H, MCHC 34.4, RDW Std Deviation 49.6 H, RDW Coeff of Harrison 14.1, Plt Count 56 L, MPV 11.2, Immature Gran % (Auto) 0.300, Neut % (Auto) 53.0, Lymph % (Auto) 27.5, [place] % (Auto) 13.8 H, Eos % (Auto) 4.7, Baso % (Auto) 0.7, Absolute Neuts (auto) 1.6 L, Absolute Lymphs (auto) 0.82 L, Nucleated RBC % 0 06/01/22 05:10: Sodium 139, Potassium 3.6, Chloride 109 H, Carbon Dioxide 25.0, Anion Gap 5, BUN 6 L, Creatinine 0.56 L, Estim Creat Clear Calc 130.67, Est GFR (MDRD) Af Amer 197, Est GFR (MDRD) Non-Af 163, BUN/Creatinine Ratio 10.7, Glucose 171 H, Calcium 7.9 L, Magnesium 1.8, Total Bilirubin 2.50 H, AST 101 H, ALT 80 H, Alkaline Phosphatase 169 H, Total Protein 6.6, Albumin 2.4 L, Globulin 4.2, Albumin/Globulin Ratio 0.6 L 06/01/22 07:03: POC Glucose 217 H Micro: Microbiology 05/30/22 05:10 Nasal Secretion SARS-CoV-2 Antigen (Rapid) - Final Physical Exam Narrative Physical exam: General: Alert, Oriented x3, Cooperative, No apparent distress HEENT: Atraumatic Oral: Moist Mucosa Neck: Supple Lungs: Clear to auscultation Cardiovascular: HS I+II, regular, no murmurs Abdomen: Bowel Sounds Present, Soft, Non Tender Extremities: No edema Skin: No rashes, No breakdown Neurological: Grossly intact Psych/Mental Status: Appropriate Assessment & Plan Assessment/Plan (1) Acute hepatic encephalopathy: PLAN: Plan 1. Acute hepatic encephalopathy, likely secondary to alcoholic liver cir rhosis/alcoholic hepatitis Patient with history of alcohol abuse. Ammonia level is 98 from 82. LFTs are slightly improved. Lipid profile is unremarkable, acetaminophen level less than 2, hepatitis pr ofile pending GI consulted - will continue on prednisone 20mg daily, nadolol 10mg BID, famotidine, Continue on lactulose Repeat blood work in am 2. Hypomagnesmia, Mg 1.8, replaced, recheck in am 3. Suicidal ideation/intent, history of schizoaffective disorder Continue on Seroquel. 4. Type 2 DM, HbA1c 7.8, BS remains uncontrolled Will increase Lantus to 30 units, ISS 5. Chronic alcohol abuse, will monitor for withdrawal 6. Thrombocytopenia likely related to liver cirrhosis, Platelet count 52, will monitor 7. DVT PPx-low risk, early ambulation recommended Charges/Coding Visit Charges Inpatient E&M: 70689 Subs Hosp L2
[2022-06-01 09:00] VITALS: BP 125/79; PULSE 66; RESP 20; TEMP 37.1; O2SAT 96
[2022-06-01] MEDS: predniSONE 20 MG Tablet PO (09:57)
[2022-06-01] MEDS: Nadolol 20 MG Tablet 10 MG PO ×2 (09:57→22:28)
[2022-06-01] MEDS: Famotidine 20 MG Tablet PO (09:58)
[2022-06-01] MEDS: QUEtiapine 25 MG Tablet PO ×2 (09:58→22:30)
[2022-06-01] MEDS: 0.9% Saline Lock 10 ML Syringe IV (12:47)
[2022-06-01] MEDS: Lactulose 20 GM/30 ML UDC PO ×2 (12:49→22:26)
[2022-06-01 13:16] LABS: Bedside Glucose 404 mg/dL (74-106)
[2022-06-01 16:35] LABS: Bedside Glucose 183 mg/dL (74-106)
[2022-06-01 17:28] VITALS: BP 146/90; PULSE 80; RESP 20; TEMP 36.7; O2SAT 97
--- NOTE | 2022-06-01 18:44 | PN_ITS ---
Subjective Subjective Patient is doing a lot better. He seems more alert and more awake today. He denies abdominal pain. He denies any abdominal distention, fluid in his legs or nausea. Objective Data Objective Data Vital Signs: Vital Signs Temp Pulse Resp BP Pulse Ox O2 Del Method 98.0 F 80 20 H 146/90 H 97 Room Air 06/01/22 17:28 06/01/22 17:28 06/01/22 17:28 06/01/22 17:28 06/01/22 17:28 06/01/22 17:28 Oxygen Delivery Method Room Air Weight: 164 lb 14.492 oz Body Mass Index (BMI) 27.9 Intake & Output: Intake and Output for Last 24 Hours 05/30/22 05/31/22 06/01/22 23:59 23:59 23:59 Intake Total 1525 / 2325 4345 / 5065 1920.25 / 1920.25 Balance 1525 / 2325 4345 / 5065 1920.25 / 1920.25 Lab / Micro Data Result Diagrams: 06/01/22 05:10 06/01/22 05:10 Labs: Laboratory Results - last 24 hr 05/31/22 21:40: POC Glucose 223 H 06/01/22 05:10: Ammonia 98.0 H 06/01/22 05:10: WBC 3.0 L, RBC 4.07 L, Hgb 13.4, Hct 38.9 L, MCV 95.6 H, MCH 32.9 H, MCHC 34.4, RDW Std Deviation 49.6 H, RDW Coeff of Harrison 14.1, Plt Count 56 L, MPV 11.2, Immature Gran % (Auto) 0.300, Neut % (Auto) 53.0, Lymph % (Auto) 27.5, [place] % (Auto) 13.8 H, Eos % (Auto) 4.7, Baso % (Auto) 0.7, Absolute Neuts (auto) 1.6 L, Absolute Lymphs (auto) 0.82 L, Nucleated RBC % 0 06/01/22 05:10: Sodium 139, Potassium 3.6, Chloride 109 H, Carbon Dioxide 25.0, Anion Gap 5, BUN 6 L, Creatinine 0.56 L, Estim Creat Clear Calc 130.67, Est GFR (MDRD) Af Amer 197, Est GFR (MDRD) Non-Af 163, BUN/Creatinine Ratio 10.7, Glucose 171 H, Calcium 7.9 L, Magnesium 1.8, Total Bilirubin 2.50 H, AST 101 H, ALT 80 H, Alkaline Phosphatase 169 H, Total Protein 6.6, Albumin 2.4 L, Globulin 4.2, Albumin/Globulin Ratio 0.6 L 06/01/22 07:03: POC Glucose 217 H 06/01/22 12:45: POC Glucose 404 H 06/01/22 16:13: POC Glucose 183 H Micro: Microbiology 05/30/22 05:10 Nasal Secretion SARS-CoV-2 Antigen (Rapid) - Final Physical Exam Narrative Physical exam: General: Alert, Oriented x3, Cooperative, No apparent distress HEENT: Atraumatic Oral: Moist Mucosa Neck: Supple Lungs: Clear to auscultation Cardiovascular: HS I+II, regular, no murmurs Abdomen: Bowel Sounds Present, Soft, Non Tender Extremities: No edema Skin: No rashes, No breakdown Neurological: Grossly intact Psych/Mental Status: Appropriate Assessment & Plan Assessment/Plan (1) Alcoholic hepatitis: PLAN: Alcoholic hepatitis. His Madrey score is decreasing and is now 28. C ontinue steroids as previously ordered as his blood sugars have not been too high. If his Madrey score continues to decrease by day 7 they can be stopped. (2) Cirrhosis: PLAN: Patient says that he possibly has a history of hepatitis C and would like to be checked for HIV. He is tolerating other medicines for cirrhosis. He has not shown any signs of ascites at this time. He should undergo an upper endoscopy while he is in the hospital to look for varices. Charges/Coding Visit Charges Inpatient E&M: 48581 Subs Hosp L2
[2022-06-01] MEDS: Insulin Glargine-YFGN 100 UNIT/ML Pen 30 UNIT SC (22:32)
[2022-06-01 23:00] VITALS: BP 134/87; PULSE 65; RESP 18; TEMP 36.6; O2SAT 97
[2022-06-01 23:00] LABS: Bedside Glucose 285 mg/dL (74-106)
[2022-06-02] VITALS (9 sets, daily range): BP systolic 98–144; BP diastolic 72–93; PULSE 57–91; RESP 16–18; TEMP 36.4–36.8; O2SAT 92–96; BMI 27.6
[2022-06-02] MEDS: Lactulose 20 GM/30 ML UDC PO ×2 (05:11→13:44)
[2022-06-02 05:12] LABS: Absolute Lymphocyte Count 0.87 X10^3/uL (0.83-4.51); Absolute Neutrophil Count 3.4 X10^3/uL (2.0-7.7); Basophil# 0.01 X10^3/uL; Basophil% 0.2 % (0-1); Eosinophil# 0.08 X10^3/uL; Eosinophils% 1.7 % (0-5); Hematocrit 40.1 % (40-54); Hemoglobin 13.6 g/dL (13.0-16.5); Lymphocyte # 0.87 X10^3/ul (0.83-4.51); Lymphocyte % 18.1 % (19-41); Mean Corp Hgb Conc 33.9 g/dL (32-36); Mean Corpuscular Hgb 32.4 pg (27.0-32.0); Mean Corpuscular Volume 95.5 fL (80-94); Mean Platelet Vol. 11.3 fl (6.2-12.0); Monocyte# 0.45 X10^3/uL; Monocyte% 9.4 % (0-10); NRBC Flagged by Analyzer 0 % (0-5); Neutrophil # 3.37 X10^3/uL (2.7-7.7); POSITIVE COUNT YES; Platelet Count 61 K/mm3 (150-450); RBC Distribution Width CV 14.3 % (11.6-14.6); RBC Distribution Width SD 49.5 fl (35.1-43.9); White Blood Count 4.8 K/mm3 (4.4-11.0)
[2022-06-02 05:18] LABS: Differential Indicated SCAN CRITERIA MET
[2022-06-02 05:27] LABS: ALB/GLOB Ratio 0.5 RATIO (0.9-2.4); AST(SGOT) 81 U/L (15-37); Alanine Aminotransfer ALT/SGPT 78 U/L (16-61); Albumin, Serum 2.3 g/dL (3.2-5.0); Alkaline Phosphatase 177 U/L (45-117); Anion Gap 4 (5-15); BUN 6 mg/dL (7-18); BUN/Creat Ratio 10.8 RATIO (10-20); Chloride 108 mmol/L (98-107); Creatinine, Serum 0.55 mg/dL (0.70-1.30); EST Glomerular Filtration Rate 165 mL/min (>60); Est Glom Filt Rate - Afr Amer 200 mL/min (>60); Estimated Creatinine Clearance 133.05 ml/min; Globulin 4.4 g/dL (2.2-4.2); Glucose 169 mg/dL (74-106); Potassium 3.4 mmol/L (3.5-5.1); Protein, Total 6.7 g/dL (6.4-8.2); Sodium Level 139 mmol/L (136-145)
[2022-06-02 05:28] LABS: Partial Thromboplast Time 32.1 Seconds (24.1-36.2)
[2022-06-02 05:37] LABS: Phosphorus 3.4 mg/dL (2.5-4.9)
--- NOTE | 2022-06-02 06:00 | EKG12_ITS ---
Test Reason : PRE-OP Blood Pressure : / mmHG Vent. Rate : 057 BPM Atrial Rate : 057 BPM P-R Int : 146 ms QRS Dur : 092 ms QT Int : 478 ms P-R-T Axes : 063 009 041 degrees QTc Int : 465 ms Sinus bradycardia Otherwise normal ECG No previous ECGs available Confirmed by CHRISTIANO STANTON, ANTWAN ([id number]), acquisitions editor COSMO DODD ([id number]) on 06/03/2022 9:11:48 AM Referred By: CHRISTIANO Confirmed By:ANTWAN ALVARADO MD
[2022-06-02 07:00] LABS: Bedside Glucose 165 mg/dL (74-106)
--- NOTE | 2022-06-02 11:12 | NURSING ---
pt to endo
[2022-06-02 11:31] LABS: Bedside Glucose 147 mg/dL (74-106)
[2022-06-02] MEDS: Lactated Ringers 1,000 ML 15 ML IV (11:34)
[2022-06-02] MEDS: 0.9% Normal Saline 1,000 ML 15 ML IV (11:43)
--- NOTE | 2022-06-02 12:30 | EGD_PTH ---
PATIENT: JOSE TALLEY LOC: MS3 U#:[id number] AGE/SX: 51/M ROOM: [facility] [place] RE05/30/[address]: Dr. Alcon Spain DO : 1970 BED: 1 DIS: 06/03/2022 SPEC #: [id number] RECD: 06/02/22 13:56 STATUS: JIGAR REQ #: [id number] BECKA: 06/02/22 12:[address]: Rohit Rincon DEPT: SURGICAL PATHOLOGY RECD BY: Romina Fuentes ENTERED: 06/03/22 08:02 SP TYPE: EGD BIOPSY OTHR DR: MD Dr. Alcon Valentin DO Tissues: Gastric mucous membrane Procedures: Surgery Specimen Level IV Comments: @ Ordering doctor for SUIV edited from to @ by RGOOD at 06/03/22 1424 @ Submitting doctor edited from to @ by RGOOD at 06/03/22 1424 HEADER OPERATION: EGD (MAC) PRE-OP DIAGNOSIS: Alcoholic hepatitis, cirrhosis TISSUE SUBMITTED: Gastric body biopsy MICROSCOPIC DIAGNOSIS Gastric body, biopsy: Moderate chronic active gastritis. LEANDRA:anisha 06/04/2022 COMMENT The results of immunohistochemistry for Helicobacter pylori will be reported separately ([id number]). MICROSCOPIC DESCRIPTION Slides are reviewed. GROSS DESCRIPTION Received in fixative is one container labeled with the patient's name and designated biopsy gastric body. The specimen consists of two irregular fragments of light sharma soft tissue that in aggregate measure 0.6 x 0.3 x 0.1 cm. The specimen is totally submitted in one cassette. / LEANDRA:anisha 06/03/2022 TC:2 CPT: 69648
--- NOTE | 2022-06-02 12:30 | IMM_PTH ---
PATIENT: JOSE TALLEY LOC: MS3 U#:[id number] AGE/SX: 51/M [place] [facility] [place]: Dr. Alcon Spain DO : 1970 BED: 1 DIS: 06/03/2022 SPEC #: [id number] RECD: 06/03/22 13:40 STATUS: JIGAR REQ #: [id number] BECKA: 06/02/22 12:[address]: Rohit Rincon DEPT: IMMUNOHISTOCHEMISTRY RECD BY: Trish Bonilla ENTERED: 06/03/22 13:41 SP TYPE: IMMUNO OTHR DR: MD Dr. Alcon Valentin DO Tissues: Stomach, NOS Procedures: H Pylori (initial) PHYSICIAN [facility] INSTIT[facility] [address] [address] SPECIMEN INFORMATION: Tissue Source: Gastric body biopsy Clinical Info: Alcoholic hepatitis, cirrhosis Specimen Number: [id number] CPT code: 91552 METHODOLOGY: Deparaffinized sections of prefer/formalin-fixed tissue or PAP/DQ stained slides are incubated with monoclonal/polyclonal antibodies/oligonucleotide probes. Localization is made via biotin free immunoperoxidase method. Appropriate controls are performed and reacted as expected. Results on target cell population are indicated in the following table: RESULTS: ANTIBODY / CLONE RESULT H Pylori (polyclonal) positive These tests were developed and their performance characteristics determined by [facility]. They may not have been cleared or approved by the U.S. Food and Drug Administration. The FDA has determined that such clearance or approval is not necessary. The above immunohistochemical/dualISH markers are ordered and reviewed by the Pathologist. INTERPRETATION: Gastric body, biopsy: Positive for a few Helicobacter pylori organisms. SJ:anisha 06/04/2022
--- NOTE | 2022-06-02 13:04 | OP.EGD_ITS ---
Patient Name: Shailesh Gomes Procedure Date: 06/02/2022 12:42 PM Date of : 1970 Age: 51 Procedure: Upper GI endoscopy Indications: Cirrhosis with suspected esophageal varices Providers: Rohit Rincon DO Medicines: Monitored Anesthesia Care Complications: No immediate complications. Procedure: Pre-Anesthesia Assessment: - Prior to the procedure, a History and Physical was performed, and patient medications and allergies were reviewed. The patient is competent. The risks and benefits of the procedure and the sedation options and risks were discussed with the patient. All questions were answered and informed consent was obtained. Patient identification and proposed procedure were verified by the physician in the pre-procedure area. Mental Status Examination: alert and oriented. Airway Examination: normal oropharyngeal airway and neck mobility. Respiratory Examination: clear to auscultation. CV Examination: normal. Prophylactic Antibiotics: The patient does not require prophylactic antibiotics. Prior Anticoagulants: The patient has taken no previous anticoagulant or antiplatelet agents. After reviewing the risks and benefits, the patient was deemed in satisfactory condition to undergo the procedure. The anesthesia plan was to use moderate sedation / analgesia (conscious sedation). Immediately prior to administration of medications, the patient was re-assessed for adequacy to receive sedatives. The heart rate, respiratory rate, oxygen saturations, blood pressure, adequacy of pulmonary ventilation, and response to care were monitored throughout the procedure. The physical status of the patient was re-assessed after the procedure. After obtaining informed consent, the endoscope was passed under direct vision. Throughout the procedure, the patient's blood pressure, pulse, and oxygen saturations were monitored continuously. The gastroscope was introduced through the mouth, and advanced to the second part of duodenum. The upper GI endoscopy was accomplished without difficulty. The patient tolerated the procedure well. Scope In: 12:55:30 PM Scope Out: 12:58:47 PM Total Procedure Duration Time 0 hours 3 minutes 17 seconds Findings: Grade I varices were found in the lower third of the esophagus. They were 5 mm in largest diameter. Severe, diffuse portal hypertensive gastropathy was found in the entire examined stomach. Biopsies were taken with a cold forceps for histology. Verification of patient identification for the specimen was done. Estimated blood loss was minimal. Diffuse mild inflammation characterized by congestion (edema) was found in the duodenal bulb. Impression: - Grade I esophageal varices. - Portal hypertensive gastropathy. Biopsied. - Duodenitis. Recommendation: - [facility]. - Resume previous diet. - Continue present medications. - Await pathology results. Procedure Code(s): --- Professional --- 60246, Esophagogastroduodenoscopy, flexible, transoral; with biopsy, single or multiple CPT copyright 2017 [employer]. All rights reserved. The codes documented in this report are preliminary and upon logistics team leader review may be revised to meet current compliance requirements. Rohit Rincon DO 06/02/2022 1:04:03 PM This report has been signed electronically. Number of Addenda: 1 Note Initiated On: 06/02/2022 12:42 PM Addendum Number: 1 Addendum Date: 08/27/2022 6:22:49 AM MAC was used as sedation for this procedure. Rohit Rincon DO 08/27/2022 6:22:54 AM This report has been signed electronically.
--- NOTE | 2022-06-02 13:04 | OP.CCLET_ITS ---
08/27/2022 Lady [facility]y Re : Upper GI endoscopy procedure for Shailesh Gomes Dear Toñito This procedure was performed on Thursday, June 02, 2022. My impressions and recommendations are as follows: Impressions : - Grade I esophageal varices. - Portal hypertensive gastropathy. Biopsied. - Duodenitis. Recommendations : - Return [facility] to [facility]. - Resume previous diet. - Continue present medications. - Await pathology results. My findings are described in the full procedure note, which is enclosed. If I can be of further assistance, please feel free to contact me at . Sincerely, Rohit Rincon, 06/02/2022 1:04:03 PM This report has been signed electronically.
[2022-06-02] MEDS: QUEtiapine 25 MG Tablet PO ×2 (13:44→22:42)
[2022-06-02] MEDS: Nadolol 20 MG Tablet 10 MG PO ×2 (13:44→22:38)
[2022-06-02] MEDS: Famotidine 20 MG Tablet PO (13:45)
[2022-06-02] MEDS: predniSONE 20 MG Tablet PO (13:53)
[2022-06-02] MEDS: Insulin Lispro 100 UNIT/ML INSULN.PEN SC ×2 (16:04→22:39)
[2022-06-02 16:30] LABS: Bedside Glucose 353 mg/dL (74-106)
--- NOTE | 2022-06-02 20:52 | PN.HOSP_ITS ---
Subjective Subjective Patient was seen and examined today. Patient is alert, he is mildly delusional, he does answer questions appropriately however. Patient's EGD today showed grade 1 esophageal varices with portal hypertensive gastropathy and duodenitis. I have informed nursing to have crisis see the patient for possible placement in a psych facility for continued treatment. Objective Data Objective Data Vital Signs: Vital Signs Temp Pulse Resp BP Pulse Ox O2 Del Method 98.2 F 77 16 125/92 H 94 Room Air 06/02/22 13:49 06/02/22 13:49 06/02/22 13:49 06/02/22 13:49 06/02/22 13:49 06/02/22 13:49 Oxygen Delivery Method Room Air Weight: 73.1 kg Body Mass Index (BMI) 27.6 Intake & Output: Intake and Output for Last 24 Hours 05/31/22 06/01/22 06/02/22 23:59 23:59 23:59 Intake Total 4345 / 5065 1920.25 / 1920.25 727.25 / 727.25 Balance 4345 / 5065 1920.25 / 1920.25 727.25 / 727.25 Lab / Micro Data Result Diagrams: 06/03/22 05:27 06/03/22 05:27 Labs: Laboratory Results - last 24 hr 06/01/22 22:20: POC Glucose 285 H 06/02/22 05:00: Ammonia 81.0 H 06/02/22 05:00: WBC 4.8, RBC 4.20 L, Hgb 13.6, Hct 40.1, MCV 95.5 H, MCH 32.4 H, MCHC 33.9, RDW Std Deviation 49.5 H, RDW Coeff of Harrison 14.3, Plt Count 61 L, MPV 11.3, Immature Gran % (Auto) 0.600, Neut % (Auto) 70.0, Lymph % (Auto) 18.1 L, [place] % (Auto) 9.4, Eos % (Auto) 1.7, Baso % (Auto) 0.2, Absolute Neuts (auto) 3.4, Absolute Lymphs (auto) 0.87, Nucleated RBC % 0 06/02/22 05:00: Sodium 139, Potassium 3.4 L, Chloride 108 H, Carbon Dioxide 27.0, Anion Gap 4 L, BUN 6 L, Creatinine 0.55 L, Estim Creat Clear Calc 133.05, Est GFR (MDRD) Af Amer 200, Est GFR (MDRD) Non-Af 165, BUN/Creatinine Ratio 10.8, Glucose 169 H, Calcium 8.0 L, Total Bilirubin 1.80 H, AST 81 H, ALT 78 H, Alkaline Phosphatase 177 H, Total Protein 6.7, Albumin 2.3 L, Globulin 4.4 H, Albumin/Globulin Ratio 0.5 L 06/02/22 05:00: APTT 32.1 06/02/22 05:00: Phosphorus 3.4 06/02/22 06:38: POC Glucose 165 H 06/02/22 11:08: POC Glucose 147 H 06/02/22 16:01: POC Glucose 353 H Micro: Microbiology 05/30/22 05:10 Nasal Secretion SARS-CoV-2 Antigen (Rapid) - Final Physical Exam Const alert, oriented x3, no apparent distress, average body habitus and healthy appearing General Appearance: cooperative, well kempt and well developed Orientation / Consciousness: awake, oriented to person, oriented to place and oriented to time HEENT normocephalic and moist oral mucous membranes Eyes PERRL, EOMs intact bilaterally and conjunctivae normal Neck nuchal rigidity, supple, no JVD, thyroid normal and no carotid bruits General: trachea midline Resp normal respiratory effort, no retractions, no use of accessory muscles and clear to auscultation bilaterally Auscultation: Negative for rales, rhonchi or wheezes Cardio regular rate, regular rhythm, S1 normal heart sound, S2 normal heart sound, no m urmurs, no rub and no gallops GI normal to inspection, nondistended, normoactive bowel sounds, soft to palpation, non-tender and non-distended Extremity normal to inspection and no clubbing, cyanosis or edema Skin no rashes or lesions noted General Skin Exam: no breakdown Neuro oriented x3, CN's II-XII intact bilaterally, moves all extremities, no focal motor deficits and no sensory deficits noted Sensorium / Orientation: awake and alert Speech: speech normal Psych affect normal Assessment & Plan Assessment/Plan (1) Cirrhosis: PLAN: Plan 1. Acute hepatic encephalopathy-improved at this time, I think patient is stable to see crisis at this time #2 hypomagnesemia-corrected at this time #3 suicidal ideation-patient will be seen by crisis #4 history of schizoaffective disorder-patient is on Seroquel #5 type 2 diabetes-continue to monitor blood sugars, sliding scale insulin as needed, patient is on basal insulin #6 duodenitis-patient is on Pepcid Charges/Coding Visit Charges Inpatient E&M: 12058 Subs Hosp L2
[2022-06-02] MEDS: Insulin Glargine-YFGN 100 UNIT/ML Pen 30 UNIT SC (22:40)
[2022-06-02] MEDS: Lactulose 20 GM/30 ML UDC 30 GM PO (22:52)
[2022-06-02 23:05] LABS: Bedside Glucose 423 mg/dL (74-106)
--- NOTE | 2022-06-03 04:19 | NURSING ---
abdi wilkes called and stated that pt has provisional acceptance after 11am pending insurance approval. ph# [phone].
[2022-06-03 05:00] VITALS: BP 121/78; PULSE 58; RESP 16; TEMP 37; O2SAT 96
[2022-06-03 05:44] LABS: Absolute Lymphocyte Count 0.72 X10^3/uL (0.83-4.51); Absolute Neutrophil Count 4.4 X10^3/uL (2.0-7.7); Basophil# 0.01 X10^3/uL; Basophil% 0.2 % (0-1); Eosinophil# 0.05 X10^3/uL; Eosinophils% 0.8 % (0-5); Hematocrit 39.7 % (40-54); Hemoglobin 13.9 g/dL (13.0-16.5); Lymphocyte # 0.72 X10^3/ul (0.83-4.51); Lymphocyte % 12.1 % (19-41); Mean Corpuscular Hgb 33.1 pg (27.0-32.0); Mean Corpuscular Volume 94.5 fL (80-94); Mean Platelet Vol. 11.1 fl (6.2-12.0); Monocyte# 0.71 X10^3/uL; Monocyte% 11.9 % (0-10); NRBC Flagged by Analyzer 0 % (0-5); Neutrophil # 4.42 X10^3/uL (2.7-7.7); Neutrophil % 74.3 % (47-70); POSITIVE COUNT YES; Platelet Count 63 K/mm3 (150-450); RBC Distribution Width CV 14.6 % (11.6-14.6); RBC Distribution Width SD 49.6 fl (35.1-43.9)
[2022-06-03 06:06] LABS: ALB/GLOB Ratio 0.6 RATIO (0.9-2.4); AST(SGOT) 82 U/L (15-37); Alanine Aminotransfer ALT/SGPT 75 U/L (16-61); Albumin, Serum 2.4 g/dL (3.2-5.0); Alkaline Phosphatase 187 U/L (45-117); Anion Gap 6 (5-15); BUN 6 mg/dL (7-18); BUN/Creat Ratio 9.4 RATIO (10-20); Calcium,Total 8.2 mg/dL (8.5-10.1); Chloride 106 mmol/L (98-107); Creatinine, Serum 0.64 mg/dL (0.70-1.30); EST Glomerular Filtration Rate 141 mL/min (>60); Est Glom Filt Rate - Afr Amer 170 mL/min (>60); Estimated Creatinine Clearance 114.34 ml/min; Globulin 4.3 g/dL (2.2-4.2); Glucose 208 mg/dL (74-106); Potassium 3.7 mmol/L (3.5-5.1); Protein, Total 6.7 g/dL (6.4-8.2); Sodium Level 139 mmol/L (136-145)
[2022-06-03] MEDS: Lactulose 20 GM/30 ML UDC 30 GM PO (06:10)
[2022-06-03] MEDS: Insulin Lispro 100 UNIT/ML INSULN.PEN SC (06:15)
[2022-06-03 06:40] LABS: Bedside Glucose 200 mg/dL (74-106)
[2022-06-03 07:39] LABS: Bacteria 0 SEEN /hpf (None Seen); Mucous, Urine 0 SEEN /hpf (<or=2+); Red Blood Cells-Urine 0 SEEN /hpf (0-5); Squamous Epithelial Cells - UA 0 SEEN /hpf (0-5); White Blood Cells 0 SEEN /hpf (0-5)
[2022-06-03 07:47] LABS: Color, Urine Yellow (Yellow); Glucose, Dipstick 250 mg/dl (Normal); Ketone-Dipstick 5 mg/dl (Negative); Leukocyte Esterase-Dipstick Negative /ul (Negative); Nitrite-Dipstick Negative (Negative); Occult Blood-Urine Negative /ul (Negative); Protein-Dipstick Negative (Negative); Specific Gravity, Urine 1.015 (1.002-1.030); Urine Bilirubin Dipstick Negative (Negative); Urine Clarity Sl. Cloudy (Clear); Urine Urobilinogen Normal (Normal)
[2022-06-03 07:48] VITALS: BP 140/87; PULSE 62; RESP 16; TEMP 37.1; O2SAT 98
[2022-06-03 07:54] LABS: Amorphous Sediment 1+
[2022-06-03] MEDS: QUEtiapine 25 MG Tablet PO (08:15)
[2022-06-03] MEDS: predniSONE 20 MG Tablet PO (08:16)
[2022-06-03] MEDS: Famotidine 20 MG Tablet PO (08:16)
[2022-06-03] MEDS: Nadolol 20 MG Tablet 10 MG PO (08:16)
--- NOTE | 2022-06-03 08:33 | NURSING ---
received call from counselling center [facility] stating have acceptance to [facility] pending guardian paperwork signiture. Information on who guardian was given to jered aware she will call guardian to complete that process. was given information on acceptance. States 2500 unit, call nurse to nurse report to [phone]. Dr. Reyes accepting physician. requesting no iv access and in gown, states no cot- Jered to call and clarify clot/ okay to transport via ambulance.
--- NOTE | 2022-06-03 08:45 | NURSING ---
received phone call again from Cecilia from Counseling center verbalized she did reach the guardian and gave them information on reaching katrin for consent to transfer/treat as well as faxing paperwork. states she did clarify that transportation via squad is acceptable.
--- NOTE | 2022-06-03 08:51 | NURSING ---
received call from Cecilia formerly [facility] again stating she received as call from [facility] again stating that they were able to contact guardian ok to proceed with transport. aware per surendra this would not be under pink slip as guardian did sign paperwork. aware she will clarify is transport ok to be before 11am as assistant shift supervisor reported couldn't be until after 11am
--- NOTE | 2022-06-03 08:54 | NURSING ---
received call from counseling center from Cecilia stating that it is ok to transport [facility] to [facility] when we are ready
--- NOTE | 2022-06-03 09:47 | DCINST_ITS ---
Discharge Instructions Diet Discharge Diet: 1800 Calorie Control Diet Activity Discharge Activity: Return to Normal Activity Weight Bearing Status: Full weight bearing Follow Up Care Test Results: Test results from this visit will be discussed in further detail at your follow- up appointment, if applicable. Discharge Plan Admission Admit Date/Time: 05/30/22 07:14 Primary Reason for Your Visit: Hepatic encephalopathy, suicidal ideation, type 2 diabetes Attending Provider: Alcon Spain Primary Care Provider: LIZZETH PITTS Consulting Providers: Cinthia Shelby Instructions Additional Instructions / Restrictions: Fingerstick blood sugars ACQHS, Humalog subcu per sliding scale: 200?250: 5 units subcu, 251?300: 8 units subcu, 301?350: 12 units subcu, 351?400: 15 units subcu Follow-up with your family physician within 1 week after discharge from [place] Discharge Orders/Prescriptions Prescriptions: New insulin glargine-yfgn 100 unit/mL (3 mL) Insulin Pen 30 unit subcut QHS Qty: 0 0RF sennosides-docusate sodium [Stool Softener-Stimulant Laxat] 8.6-50 mg Tablet 2 tab PO BID PRN PRN (Reason: Constipation) Qty: 0 0RF nadolol 20 mg Tablet 10 mg PO BID Qty: 0 0RF lactulose 20 gram/30 mL Solution 30 g PO TID Qty: 0 0RF furosemide [Lasix] 20 mg tablet 20 mg PO DAILY Qty: 1 0RF spironolactone [Aldactone] 25 mg tablet 25 mg PO DAILY Qty: 1 0RF pantoprazole [Protonix] 40 mg tablet,delayed release (DR/EC) 40 mg PO DAILY Qty: 1 0RF quetiapine 25 mg Tablet 25 mg PO BID Qty: 0 0RF Referrals / Follow Up: LIZZETH PITTS [Other] NOT,DEFINED [NON-STAFF] - Disposition Disposition (needs filled in before D/C Order can be placed): Psychiatric Hospital or Unit
--- NOTE | 2022-06-03 10:30 | DS.PCM_ITS ---
Providers Date of Admission: 05/30/22 Date of Discharge: 06/04/22 Primary Care Physician: LIZZETH PITTS Consultations 05/31/22 13:37 Consult: Gastroenterology Routine Consulting Provider: [facility] Reason for Consult: Alcoholic hepatitis EMERGENT Consult: No MD Notified: Yes Date Notified: 05/31/22 Time Notified: 13:37 Method of Notification: Verbal Reason For Visit: HEPATIC ENCEPHALOPATHY/ELEVATED LFT Diagnosis Discharge Diagnosis (1) Cirrhosis: Status: Acute Code(s): K74.60 - Unspecified cirrhosis of liver Plan 1. Acute hepatic encephalopathy-improved at this time, I think patient is stable to see crisis at this time #2 hypomagnesemia-corrected at this time #3 suicidal ideation-patient will be seen by crisis #4 history of schizoaffective disorder-patient is on Seroquel #5 type 2 diabetes-continue to monitor blood sugars, sliding scale insulin as needed, patient is on basal insulin #6 duodenitis-patient is on Pepcid Medications at Discharge Home Medications furosemide 20 mg tablet (Lasix) 20 mg PO DAILY #1 TAB 06/03/22 insulin glargine-yfgn 100 unit/mL (3 mL) subcutaneous pen 30 unit (0.3 mL) subcut QHS #0 mL 06/03/22 lactulose 20 gram/30 mL oral solution 30 g (45 mL) PO TID #0 mL 06/03/22 nadolol 20 mg tablet 10 mg PO BID #0 tabs 06/03/22 pantoprazole 40 mg tablet,delayed release (Protonix) 40 mg PO DAILY #1 TAB 06/03/22 quetiapine 25 mg tablet 25 mg PO BID #0 tabs 06/03/22 sennosides 8.6 mg-docusate sodium 50 mg tablet (Stool Softener-Stimulant Laxative) 2 tab PO BID PRN PRN Constipation #0 tabs 06/03/22 spironolactone 25 mg tablet (Aldactone) 25 mg PO DAILY #1 TAB 06/03/22 Hospital Course Operations None Procedures EGD Summary of Care Provided Minutes Spent on Discharge: 31 Hospital Course: This 51-year-old white male with a history of schizoaffective disorder, substance abuse, and chronic alcohol use was seen in the emergency room at [facility] after being brought in by the police after requesting treatment for his mental health. He had eloped from a intermediate approximately a week prior, patient stated that he was feeling very depressed and had wanted to kill himself several times. Work-up in the emergency room showed his ammonia level to be 136, blood pressure was elevated, white blood cell count was 3.7, platelet count was 66,000, glucose was 328, AST was 128, ALT was 91, and alkaline phosphatase was 144. Patient was admitted to [place] [address] for acute hepatic encephalopathy and suicidal ideation, he was given lactulose and ultimately seen by crisis intervention who felt he would require placement in a psych facility. On 06/04/2022, patient was seen and examined: On examination he appeared in good health and spirits. Vital signs as documented. Skin warm and dry and without overt rashes. Neck without JVD, neck was supple, trachea midline, thyroid was normal. Lungs clear bilaterally, normal air movement was noted. Heart exam notable for regular rhythm, normal sounds and absence of murmurs, rubs or gallops. Abdomen unremarkable and without evidence of organomegaly, masses, or abdominal aortic enlargement. Bowel sounds are present, abdomen is not distended. Extremities nonedematous, no cyanosis was noted, no clubbing was noted. Neuro: Cranial nerves II through XII are grossly intact, no focal motor deficits were noted, sensation to light touch and pinprick intact, motor exam 5/5 throughout. Psych: Patient is alert and oriented x3, he does not appear anxious or depressed, he does not appear agitated. Patient appeared stable for discharge to a psych facility on 06/04/2022. Weight / BMI Weight Weight: 75.3 kg Body Mass Index (BMI) 27.6 ABG / Lab / Microbiology Data Result Diagrams: 06/03/22 05:27 06/03/22 05:27 Microbiology: Microbiology 06/03/22 07:30 Nasal Secretion SARS-CoV-2 Antigen (Rapid) - Final 05/30/22 05:10 Nasal Secretion SARS-CoV-2 Antigen (Rapid) - Final D/C Instructions Discharge Diet: 1800 Calorie Control Diet Weight Bearing Status: Full weight bearing Meaningful Use Info Meaningful Use Diagnoses (Choose all that apply): None applicable Discharge Plan Admission Admit Date/Time: 05/30/22 07:14 Primary Reason for Your Visit: Hepatic encephalopathy, suicidal ideation, type 2 diabetes Attending Provider: Alcon Spain Primary Care Provider: LIZZETH PITTS Consulting Providers: Cinthia Shelby Instructions Additional Instructions / Restrictions: Fingerstick blood sugars ACQHS, Humalog subcu per sliding scale: 200?250: 5 units subcu, 251?300: 8 units subcu, 301?350: 12 units subcu, 351?400: 15 units subcu Follow-up with your family physician within 1 week after discharge from [place] Discharge Orders/Prescriptions Prescriptions: New insulin glargine-yfgn 100 unit/mL (3 mL) Insulin Pen 30 unit subcut QHS Qty: 0 0RF sennosides-docusate sodium [Stool Softener-Stimulant Laxat] 8.6-50 mg Tablet 2 tab PO BID PRN PRN (Reason: Constipation) Qty: 0 0RF nadolol 20 mg Tablet 10 mg PO BID Qty: 0 0RF lactulose 20 gram/30 mL Solution 30 g PO TID Qty: 0 0RF furosemide [Lasix] 20 mg tablet 20 mg PO DAILY Qty: 1 0RF spironolactone [Aldactone] 25 mg tablet 25 mg PO DAILY Qty: 1 0RF pantoprazole [Protonix] 40 mg tablet,delayed release (DR/EC) 40 mg PO DAILY Qty: 1 0RF quetiapine 25 mg Tablet 25 mg PO BID Qty: 0 0RF Referrals / Follow Up: LIZZETH PITTS [Other] NOT,DEFINED [NON-STAFF] - Disposition Disposition (needs filled in before D/C Order can be placed): Psychiatric Hospital or Unit Charges/Coding Visit Charges Inpatient E&M: 72524 Disch Hosp
--- NOTE | 2022-06-03 10:42 | NURSING ---
called hansat to lien
--- NOTE | 2022-06-03 11:11 | CASEMGMT ---
Social Work Arrangements have been made for pt to go to [facility]. Per nursing and Crisis, pt guardian Magdiel Watkinsdayanna is aware. SW placed call to pt Pupil Personnel Services Director Isabel Banerjee and left message regarding discharge plan. DEISI Acosta
--- NOTE | 2022-06-03 11:24 | PHA.DC.MR ---
Pharmacy Service has performed discharge medication reconciliation for this patient. The patient's discharge medication list was reviewed for discrepancies and discrepancies were resolved. Home Medications furosemide 20 mg tablet (Lasix) 20 mg PO DAILY #1 TAB 06/03/22 insulin glargine-yfgn 100 unit/mL (3 mL) subcutaneous pen 30 unit (0.3 mL) subcut QHS #0 mL 06/03/22 lactulose 20 gram/30 mL oral solution 30 g (45 mL) PO TID #0 mL 06/03/22 nadolol 20 mg tablet 10 mg PO BID #0 tabs 06/03/22 pantoprazole 40 mg tablet,delayed release (Protonix) 40 mg PO DAILY #1 TAB 06/03/22 quetiapine 25 mg tablet 25 mg PO BID #0 tabs 06/03/22 sennosides 8.6 mg-docusate sodium 50 mg tablet (Stool Softener-Stimulant Laxative) 2 tab PO BID PRN PRN Constipation #0 tabs 06/03/22 spironolactone 25 mg tablet (Aldactone) 25 mg PO DAILY #1 TAB 06/03/22
[2022-06-05 06:08] LABS: Ceruloplasmin 18.4 mg/dL (16.0-31.0)
[2022-06-05 17:03] LABS: Copper, Serum or Plasma 93 ug/dL (69-132); Haptoglobin 20 mg/dL (29-370)
== END 2022-06-03 11:43 | DRG 280 ==
LOC: ED 07:04 → MS3 07:53
PROVIDERS: Anesthesiology; Internal Medicine Gastroenterology; Admitting Provider Internal Medicine; Emergency Provider Emergency Medicine; Visit Provider Internal Medicine
PROC: 0DJ08ZZ Inspection of Upper Intestinal Tract, Via Natural or Artificial Opening Endoscopic (ICD-10-PCS; CPT 43235; principal; 2022-06-02 12:25)
DX: K70.40 Alcoholic hepatic failure without coma (principal); K70.10 Alcoholic hepatitis without ascites; F25.9 Schizoaffective disorder, unspecified; I85.00 Esophageal varices without bleeding; K76.6 Portal hypertension; E11.65 Type 2 diabetes mellitus with hyperglycemia; K70.30 Alcoholic cirrhosis of liver without ascites; F31.9 Bipolar disorder, unspecified; Z79.4 Long term (current) use of insulin; K29.80 Duodenitis without bleeding; E83.42 Hypomagnesemia; F10.10 Alcohol abuse, uncomplicated; I10 Essential (primary) hypertension; Z20.822 Contact with and (suspected) exposure to COVID-19; Y90.5 Blood alcohol level of 100-119 mg/100 ml; R45.851 Suicidal ideations; Z59.00 Homelessness unspecified; Z79.899 Other long term (current) drug therapy; Z86.19 Personal history of other infectious and parasitic diseases
CPT/HCPCS: 36415; 76705; 80053; 80061; 80074; 80307; 80329; 81001; 82077; 82140; 82248; 82390; 82525; 82728; 82962; 83010; 83036; 83735; 84100; 85025; 85610; 85730; 86880; 87426; 87522; 87811; 88305; 88342; 93005; 97802; 99251; 99282; J7030; J7050; J7120; A4216; G0463; G0480; J2405

== ENCOUNTER 2022-08-30 03:05 | Emergency (ER) | payer MEDICAID, SELFPAY ==
[2022-08-30 03:10] VITALS: BP 141/90; PULSE 85; RESP 16; TEMP 37.1; O2SAT 97; BMI 27.0
[2022-08-30 04:10] LABS: Amphetamine Urine VISTA NEGATIVE (<1000 ng/mL); Barbiturate Urine VISTA NEGATIVE (< 200 ng/mL); Benzodiazepine Urine VISTA NEGATIVE (< 200 ng/mL); Cocaine Urine VISTA NEGATIVE (< 300 ng/mL); Ecstacy Urine VISTA NEGATIVE (< 500 ng/mL); Methadone Urine VISTA NEGATIVE (< 300 ng/mL); PCP Urine VISTA NEGATIVE (< 25 ng/mL); THC Urine VISTA POSITIVE (< 50 ng/mL); Vista UDS pH Range 5
[2022-08-30 04:19] LABS: Anion Gap 9 (5-15); BUN 5 mg/dL (7-18); BUN/Creat Ratio 6.4 RATIO (10-20); Calcium,Total 8.4 mg/dL (8.5-10.1); Chloride 104 mmol/L (98-107); Creatinine, Serum 0.78 mg/dL (0.70-1.30); EST Glomerular Filtration Rate 111 mL/min (>60); Est Glom Filt Rate - Afr Amer 135 mL/min (>60); Estimated Creatinine Clearance 93.82 ml/min; Glucose 275 mg/dL (74-106); Potassium 4.4 mmol/L (3.5-5.1); Sodium Level 136 mmol/L (136-145)
[2022-08-30 04:23] LABS: Absolute Neutrophil Count 1.9 X10^3/uL (2.0-7.7); Basophil# 0.01 X10^3/uL; Basophil% 0.3 % (0-1); Eosinophil# 0.01 X10^3/uL; Eosinophils% 0.3 % (0-5); Hematocrit 37.4 % (40-54); Hemoglobin 13.1 g/dL (13.0-16.5); Lymphocyte % 32.5 % (19-41); Mean Corpuscular Hgb 32.2 pg (27.0-32.0); Mean Corpuscular Volume 91.9 fL (80-94); Mean Platelet Vol. 10.6 fl (6.2-12.0); NRBC Flagged by Analyzer 0 % (0-5); Neutrophil # 1.87 X10^3/uL (2.7-7.7); Neutrophil % 46.6 % (47-70); POSITIVE COUNT YES; Platelet Count 65 K/mm3 (150-450); RBC Distribution Width CV 14.9 % (11.6-14.6); RBC Distribution Width SD 50.4 fl (35.1-43.9); Red Blood Count 4.07 M/mm3 (4.6-6.2)
[2022-08-30 04:29] VITALS: BP 132/74; PULSE 79; RESP 19; O2SAT 99
[2022-08-30 05:00] VITALS: BP 126/72; PULSE 80; RESP 16; TEMP 36.9; O2SAT 99
--- NOTE | 2022-08-30 05:27 | EX.ED.VIS.PS ---
HPI HPI - Psych History of Present Illness Chief Complaint: Mental Health Informant: patient Narrative Narrative: Patient states he has history of schizoaffective disorder and multiple personality disorder. He feels that sometimes another person, takes over his thoughts. He had thoughts of cutting himself and killing himself. He states he does not want to do this but he was scratching his arm slightly. He called police so he can get help. He is taking his Seroquel. It sounds like he is currently off of his insulin and has been for some time. He also states he has been on metformin but does not think he is taking that now. He occasionally is on lactulose. He is not having abdominal pain. He does have a history of hepatitis and is still drinking. No drugs. [facility] Medical History Alcohol abuse Anxiety Bipolar disorder Current use of insulin Depression Diabetes mellitus Former smoker GERD (gastroesophageal reflux disease) Hepatitis High cholesterol HTN (hypertension) Injury of head and neck PTSD (post-traumatic stress disorder) Schizophrenia Home Medications furosemide 20 mg tablet (Lasix) 20 mg PO DAILY #1 TAB 06/03/22 [Rx Last Taken Unknown] lactulose 20 gram/30 mL oral solution 30 g (45 mL) PO TID #0 mL 06/03/22 [Rx Last Taken Unknown] nadolol 20 mg tablet 10 mg PO BID #0 tabs 06/03/22 [Rx Last Taken Unknown] pantoprazole 40 mg tablet,delayed release (Protonix) 40 mg PO DAILY #1 TAB 06/03/22 [Rx Last Taken Unknown] quetiapine 25 mg tablet 25 mg PO BID #0 tabs 06/03/22 [Rx Last Taken Unknown] sennosides 8.6 mg-docusate sodium 50 mg tablet (Stool Softener-Stimulant Laxative) 2 tab PO BID PRN PRN Constipation #0 tabs 06/03/22 [Rx Last Taken Unknown] spironolactone 25 mg tablet (Aldactone) 25 mg PO DAILY #1 TAB 06/03/22 [Rx Last Taken Unknown] Allergy/AdvReac Type Severity Reaction Status Date / Time No Known Allergies Allergy Verified 05/30/22 04:34 Family History Father Heart disease Mother No problems noted. Surgical History History of hip surgery History of tonsillectomy Social History Smoking Status: Never smoker ROS ROS ED Constitutional Constitutional ED: Denies chills or fever(s) Eyes Eyes: Denies change in vision or diplopia ENT ENT ED: Denies rhinorrhea Cardiovascular Cardiovascular: Denies chest pain, palpitations or racing heartbeat Respiratory/Chest Respiratory/Chest: Denies cough or dyspnea Gastrointestinal Gastrointestinal: Denies abdominal pain, nausea or vomiting Genitourinary Genitourinary ED: Denies dysuria Musculoskeletal Musculoskeletal: Denies arthralgias Integumentary Denies rash Neurologic Neurologic: Denies headache(s) Psychiatric Psychiatric: Reports anxiety and suicidal thoughts Hematologic/Lymphatic Hematologic/Lymphatic: Denies easy bleeding or easy bruising Allergic/Immunologic Allergic/Immunologic ED: Denies urticaria EXAM Physical Exam Const Vital Signs: 08/30/22 03:10 08/30/22 04:29 08/30/22 05:00 Temperature 98.7 F 98.4 F Temperature Source Oral Oral Pulse Rate 85 79 80 Respiratory Rate 16 19 H 16 Blood Pressure 141/90 H 132/74 H 126/72 H Blood Pressure Mean 107 93 90 Pulse Ox 97 99 99 Oxygen Delivery Method Room Air Room Air Room Air 08/30/22 12:59 08/30/22 13:01 Temperature 97.6 F L Temperature Source Pulse Rate 68 68 Respiratory Rate 15 15 Blood Pressure 138/69 H 138/69 H Blood Pressure Mean 92 92 Pulse Ox 98 98 Oxygen Delivery Method Room Air Positive well nourished and well developed General Appearance ED: well developed and NAD HEENT atraumatic Eyes General Eye ED: Negative for scleral icterus Resp normal respiratory effort and clear to auscultation bilaterally Auscultation: Negative for rales, rhonchi or wheezes Cardio no murmurs Rate: regular rate Rhythm: regular rhythm GI non-tender and non-distended Palpation: soft Back/Spine no CVA tenderness Extremity normal to inspection Neuro oriented x3 Neuro Narrative: Patient is actually oriented x3. I do not get any indication that he is having confusion. He does have some hallucinations but states he is always able to talk to his mom and dad. This is not abnormal for him. He does state that one of his other personalities is trying to get him to hurt himself. This has happened several times before. He was recently admitted for psychiatric reasons. This is after a short med stay due to hepatic encephalopathy. But patient does not seem at all encephalopathic at this time. Psych Psych Narrative: Patient is cooperative. He does admit to some suicidal thoughts but does not actually want to hurt himself. However, he is afraid he will because of his mental illness. Appearance: grossly normal Skin General Skin Exam: Negative for jaundice MDM MDM MDM Narrative Medical decision making narrative: Patient does have some elevations of his liver function test but he has known liver disease and was drinking alcohol. He is not having pain. Ammonia is elevated but it is lower than at his recent discharge. His symptoms are more related to psychiatric illness. He does not appear to have encephalopathy clinically. Electrolytes show elevated glucose at 275 but otherwise overall normal. Repeat alcohol is below 100. I believe the patient is medically cleared for psychiatric evaluation. Plan will be for likely psychiatric hospital placement for management of illness. We are pending eval's at this time. Lab Data Attestation: I reviewed the patient's lab results. Labs: Laboratory Results - last 24 hr 08/30/22 08/30/22 08/30/22 03:53 03:53 03:53 WBC Cancelled Corrected WBC Cancelled RBC Cancelled Hgb Cancelled Hct Cancelled MCV Cancelled MCH Cancelled MCHC Cancelled RDW Std Deviation Cancelled RDW Coeff of Harrison Cancelled Plt Count Cancelled MPV Cancelled Immature Gran % (Auto) Cancelled Neut % (Auto) Cancelled Lymph % (Auto) Cancelled [place] % (Auto) Cancelled Eos % (Auto) Cancelled Baso % (Auto) Cancelled Absolute Neuts (auto) Cancelled Absolute Lymphs (auto) Cancelled Total Counted Cancelled Neutrophils % (Manual) Cancelled Band Neutrophils % Cancelled Lymphocytes % (Manual) Cancelled Monocytes % (Manual) Cancelled Eosinophils % (Manual) Cancelled Basophils % (Manual) Cancelled Metamyelocytes % Cancelled Myelocytes % Cancelled Promyelocytes % Cancelled Blast Cells % Cancelled Plasma Cell % (Manual) Cancelled Other Cells % Cancelled Nucleated RBC % Cancelled Nucleated RBCs/100 WBC Cancelled Differential Comment Cancelled Diff Path Review Cancelled Hypersegmented Neuts Cancelled Atypical Lymphocytes Cancelled Reactive Lymphocytes Cancelled Smudge Cells Cancelled Toxic Granulation Cancelled Toxic Vacuolation Cancelled Dohle Bodies Cancelled Mena Rods Cancelled Platelet Estimate Cancelled Plt Morphology Comment Cancelled RBC Morphology Cancelled Polychromasia Cancelled Hypochromasia Cancelled Poikilocytosis Cancelled Basophilic Stippling Cancelled Anisocytosis Cancelled Microcytosis Cancelled Macrocytosis Cancelled Spherocytes Cancelled Sickle Cells Cancelled Target Cells Cancelled Tear Drop Cells Cancelled Ovalocytes Cancelled Stomatocytes Cancelled St-[place] Bodies Cancelled [place] Cells Cancelled Bite Cells Cancelled Crenated Cell Cancelled Acanthocytes (Spur) Cancelled Rouleaux Cancelled Schistocytes Cancelled Sodium 136 Potassium 4.4 Chloride 104 Carbon Dioxide 23.0 Anion Gap 9 BUN 5 L Creatinine 0.78 Estim Creat Clear Calc 93.82 Est GFR (MDRD) Af Amer 135 Est GFR (MDRD) Non-Af 111 BUN/Creatinine Ratio 6.4 L Glucose 275 H Calcium 8.4 L Total Bilirubin Direct Bilirubin AST ALT Alkaline Phosphatase Ammonia Total Protein Albumin Globulin Urine Opiates Screen Urine Methadone Screen Ur Barbiturates Screen Ur Phencyclidine Scrn Ur Amphetamines Screen MDMA (Ecstasy) Screen U Benzodiazepines Scrn Urine Cocaine Screen U Cannabinoids Screen Ur Drug Screen Comment Ethyl Alcohol 107.0 08/30/22 08/30/22 08/30/22 03:53 03:53 04:09 WBC 4.0 L Corrected WBC RBC 4.07 L Hgb 13.1 Hct 37.4 L MCV 91.9 MCH 32.2 H MCHC 35.0 RDW Std Deviation 50.4 H RDW Coeff of Harrison 14.9 H Plt Count 65 L MPV 10.6 Immature Gran % (Auto) 0.300 Neut % (Auto) 46.6 L Lymph % (Auto) 32.5 [place] % (Auto) 20.0 H Eos % (Auto) 0.3 Baso % (Auto) 0.3 Absolute Neuts (auto) 1.9 L Absolute Lymphs (auto) 1.30 Total Counted Neutrophils % (Manual) Band Neutrophils % Lymphocytes % (Manual) Monocytes % (Manual) Eosinophils % (Manual) Basophils % (Manual) Metamyelocytes % Myelocytes % Promyelocytes % Blast Cells % Plasma Cell % (Manual) Other Cells % Nucleated RBC % 0 Nucleated RBCs/100 WBC Differential Comment Diff Path Review Hypersegmented Neuts Atypical Lymphocytes Reactive Lymphocytes Smudge Cells Toxic Granulation Toxic Vacuolation Dohle Bodies Mena Rods Platelet Estimate Plt Morphology Comment RBC Morphology Polychromasia Hypochromasia Poikilocytosis Basophilic Stippling Anisocytosis Microcytosis Macrocytosis Spherocytes Sickle Cells Target Cells Tear Drop Cells Ovalocytes Stomatocytes St-[place] Bodies Candie Cells Bite Cells Crenated Cell Acanthocytes (Spur) Rouleaux Schistocytes Sodium Potassium Chloride Carbon Dioxide Anion Gap BUN Creatinine Estim Creat Clear Calc Est GFR (MDRD) Af Amer Est GFR (MDRD) Non-Af BUN/Creatinine Ratio Glucose Calcium Total Bilirubin 2.40 H Direct Bilirubin 0.93 H AST 163 H ALT 138 H Alkaline Phosphatase 111 Ammonia Total Protein 7.9 Albumin 2.8 L Globulin 5.1 H Urine Opiates Screen NEGATIVE Urine Methadone Screen NEGATIVE Ur Barbiturates Screen NEGATIVE Ur Phencyclidine Scrn NEGATIVE Ur Amphetamines Screen NEGATIVE MDMA (Ecstasy) Screen NEGATIVE U Benzodiazepines Scrn NEGATIVE Urine Cocaine Screen NEGATIVE U Cannabinoids Screen POSITIVE H Ur Drug Screen Comment Ethyl Alcohol 08/30/22 08/30/22 05:44 05:44 WBC Corrected WBC RBC Hgb Hct MCV MCH MCHC RDW Std Deviation RDW Coeff of Harrison Plt Count MPV Immature Gran % (Auto) Neut % (Auto) Lymph % (Auto) [place] % (Auto) Eos % (Auto) Baso % (Auto) Absolute Neuts (auto) Absolute Lymphs (auto) Total Counted Neutrophils % (Manual) Band Neutrophils % Lymphocytes % (Manual) Monocytes % (Manual) Eosinophils % (Manual) Basophils % (Manual) Metamyelocytes % Myelocytes % Promyelocytes % Blast Cells % Plasma Cell % (Manual) Other Cells % Nucleated RBC % Nucleated RBCs/100 WBC Differential Comment Diff Path Review Hypersegmented Neuts Atypical Lymphocytes Reactive Lymphocytes Smudge Cells Toxic Granulation Toxic Vacuolation Dohle Bodies Mena Rods Platelet Estimate Plt Morphology Comment RBC Morphology Polychromasia Hypochromasia Poikilocytosis Basophilic Stippling Anisocytosis Microcytosis Macrocytosis Spherocytes Sickle Cells Target Cells Tear Drop Cells Ovalocytes Stomatocytes St-[place] Bodies Candie Cells Bite Cells Crenated Cell Acanthocytes (Spur) Rouleaux Schistocytes Sodium Potassium Chloride Carbon Dioxide Anion Gap BUN Creatinine Estim Creat Clear Calc Est GFR (MDRD) Af Amer Est GFR (MDRD) Non-Af BUN/Creatinine Ratio Glucose Calcium Total Bilirubin Direct Bilirubin AST ALT Alkaline Phosphatase Ammonia 79.0 H Total Protein Albumin Globulin Urine Opiates Screen Urine Methadone Screen Ur Barbiturates Screen Ur Phencyclidine Scrn Ur Amphetamines Screen MDMA (Ecstasy) Screen U Benzodiazepines Scrn Urine Cocaine Screen U Cannabinoids Screen Ur Drug Screen Comment Ethyl Alcohol 72.0 Discharge Plan Triage Chief Complaint: Mental Health ED Provider: Breezy Mariscal Dx/Rx/DC Orders Clinical Impression: Suicidal ideation, Cirrhosis Prescriptions: No Action sennosides-docusate sodium [Stool Softener-Stimulant Laxat] 8.6-50 mg Tablet 2 tab PO BID PRN PRN (Reason: Constipation) Qty: 0 0RF nadolol 20 mg Tablet 10 mg PO BID Qty: 0 0RF lactulose 20 gram/30 mL Solution 30 g PO TID Qty: 0 0RF furosemide [Lasix] 20 mg tablet 20 mg PO DAILY Qty: 1 0RF spironolactone [Aldactone] 25 mg tablet 25 mg PO DAILY Qty: 1 0RF pantoprazole [Protonix] 40 mg tablet,delayed release (DR/EC) 40 mg PO DAILY Qty: 1 0RF quetiapine 25 mg Tablet 25 mg PO BID Qty: 0 0RF Primary Care Provider: LIZZETH PITTS Referrals: LIZZETH PITTS [Other] Disposition Disposition: Psychiatric Hospital or Unit
[2022-08-30 06:33] LABS: AST(SGOT) 163 U/L (15-37); Alanine Aminotransfer ALT/SGPT 138 U/L (16-61); Albumin, Serum 2.8 g/dL (3.2-5.0); Alkaline Phosphatase 111 U/L (45-117); Bilirubin, Direct 0.93 mg/dL (0.00-0.30); Globulin 5.1 g/dL (2.2-4.2); Protein, Total 7.9 g/dL (6.4-8.2)
--- NOTE | 2022-08-30 07:07 | ED.RN ---
[facility] PAGED TO SEE PATIENT AT THIS TIME
--- NOTE | 2022-08-30 07:46 | ED.RN ---
FAXED CHART TO [facility]
--- NOTE | 2022-08-30 08:06 | ED.RN ---
[facility] CALLED AND IS TALKING WITH PT ON THE PHONE
--- NOTE | 2022-08-30 09:18 | ED.RN ---
[facility] CALLED STATING PT IS PENDING AT [facility]
[2022-08-30 12:59] VITALS: BP 138/69; PULSE 68; RESP 15; O2SAT 98
[2022-08-30 13:01] VITALS: BP 138/69; PULSE 68; RESP 15; TEMP 36.4; O2SAT 98
--- NOTE | 2022-08-30 13:22 | ED.RN ---
ATTEMPTED TO CALL REPORT MULTIPLE TIMES AND NEVER HAD ANY ONE ANSWER THE PHONE
== END 2022-08-30 13:31 ==
PROVIDERS: Emergency Provider Emergency Medicine; Visit Provider Emergency Medicine
DX: R45.851 Suicidal ideations (principal); F25.9 Schizoaffective disorder, unspecified; K74.60 Unspecified cirrhosis of liver; F44.81 Dissociative identity disorder; E11.9 Type 2 diabetes mellitus without complications; E78.00 Pure hypercholesterolemia, unspecified; I10 Essential (primary) hypertension; Z79.899 Other long term (current) drug therapy
CPT/HCPCS: 80048; 80076; 80307; 82077; 82140; 85025; 87811; 99283